=== PATIENT | male | born 1980 | race Caucasian/White ===

== ENCOUNTER 2024-10-04 09:48 | Emergency (ER) | payer OTHER, SELFPAY ==
[2024-10-04] VITALS (14 sets, daily range): BP systolic 97–123; BP diastolic 64–88; PULSE 63–77; RESP 12–116; TEMP 36.4; O2SAT 94–99
--- NOTE | 2024-10-04 10:06 | ECG_ITS ---
Test Date: 2024-10-04 10:13:49 Measurements Intervals [place] Rate: 63 P: 39 ME: 183 QRS: 15 QRSD: 93 T: 48 QT: 410 QTc: 420 Interpretive Statements SINUS RHYTHM BASELINE ARTIFACT- I, II, III NORMAL ECG No previous ECG available for comparison Electronically Signed On 10-04-2024 14:42:07 CDT by Robinson Huitron D.O.
--- NOTE | 2024-10-04 10:16 | ED.GENADULT ---
HPI - General Adult General Chief complaint: Unspecified Stated complaint: OD ON CRACK/FENTANYL Time Seen by Provider: 10/04/24 10:05 History of Present Illness HPI narrative: 43-year-old male with history of polysubstance abuse including fentanyl, cocaine. Patient presents to the emergency department approximately 1 hour after use of both substances. He states he snorted some fentanyl and smoked some crack cocaine. He states he used his normal amount but was from a new supplier and feels like it stronger than his normal supply and he feels very ?off he is describing feelings like his heart is racing and trouble catching his breath in addition to being jittery and shaking his extremities as well as feeling nauseous. He has not had any loss of consciousness or decreased respiratory efforts. Ambulatory here in the emergency department and not any acute physical distress. Answering all my questions appropriately. No trauma. He states he relapsed about 1 month ago after being clean for about 1 year. Denies any pain, chest discomfort, headache, abdominal pain, back pain. No neurological deficits. Related Data Allergies Allergy/AdvReac Type Severity Reaction Status Date / Time quetiapine (From [employer]) AdvReac Unknown Verified 10/04/24 10:16 skin glue Allergy Unknown Uncoded 10/04/24 10:16 Review of Systems Review of Systems: As reviewed above in HPI Exam Narrative: GENERAL: Anxious and jittery but not any acute physical distress. Awake and answering all my questions appropriately HEAD: [Normocephalic, atraumatic.] EYES: [PERRLA and EOMI.] ENT: Nares clear, no rhinorrhea or epistaxis. Mucous membranes moist. NECK: Supple. CHEST: [Clear to auscultation. No respiratory distress.] HEART: [Regular rate and rhythm]. No murmur heard. [Normal peripheral pulses.] ABDOMEN: [Soft, nondistended], [nontender], [No rigidity or guarding] EXTREMITIES: Normal range of motion. [No edema.] SKIN: Warm, dry, no rash. Scattered petechiae in the bilateral lower extremities NEURO: No focal deficits. Alert and oriented x3 PSYCH: Anxious mood, not suicidal or homicidal. Course Vital Signs Vital signs: Vital Signs Temperature 36.4 C L 10/04/24 10:17 Pulse Rate 71 10/04/24 10:17 Respiratory Rate 12 10/04/24 10:17 Blood Pressure 123/88 10/04/24 10:17 Pulse Oximetry 99 10/04/24 10:17 Oxygen Delivery Room Air 10/04/24 10:17 Temperature 36.4 C L 10/04/24 10:17 Pulse Rate 75 10/04/24 12:15 Respiratory Rate 12 10/04/24 12:15 Blood Pressure 101/64 10/04/24 11:33 Pulse Oximetry 98 10/04/24 12:15 Oxygen Delivery Room Air 10/04/24 10:17 Medical Decision Making MDM Narrative Medical decision making narrative: 43-year-old male with history of polysubstance abuse including fentanyl, cocaine. Patient presents to the emergency department approximately 1 hour after use of both substances. He states he snorted some fentanyl and smoked some crack cocaine. He states he used his normal amount but was from a new supplier and feels like it stronger than his normal supply and he feels very ?off he is describing feelings like his heart is racing and trouble catching his breath in addition to being jittery and shaking his extremities as well as feeling nauseous. He has not had any loss of consciousness or decreased respiratory efforts. Ambulatory here in the emergency department and not any acute physical distress. Answering all my questions appropriately. No trauma. He states he relapsed about 1 month ago after being clean for about 1 year. Denies any pain, chest discomfort, headache, abdominal pain, back pain. No neurological deficits. Patient's physical examination shows some jitteriness in the extremities as well as anxious mood and affect. Given his symptomatology sounds like he most likely has more sympathomimetics from the cocaine in affect rather than any depressed affect from the fentanyl as he is awake alert oriented and talking without any difficulty maintaining respirations or consciousness. His vital signs are reassuring without any significant tachycardia blood pressure elevations. He is hydrating well on room air. Patient is requesting medications to help him feel better. At this time will trial a small dose of Ativan for counter acting the cocaine in addition to some Zofran and D5 fluids for hydration and nausea control. Laboratory studies were obtained as well as alcohol level, salicylate level, Tylenol level and UDS. Patient placed on pulse oximetry and load dispatcher local and re-evaluated frequently. Laboratory studies are unremarkable, urine drug screen positive for cocaine, patient remains hemodynamically stable. Patient re-evaluated after interventions and feels significantly better. Patient has metabolized the substances at this point and he is stable for discharge home. Patient offered resources for substance abuse and rehab [facility] will [facility] upon [facility]. Patient comfortable with plan and safe for discharge home at this time. Medical Records Medical records reviewed: Yes I reviewed the external patient's medical records. Vital Signs Vital Signs: Vital Signs Temperature 36.4 C L 10/04/24 10:17 Pulse Rate 71 10/04/24 10:17 Respiratory Rate 12 10/04/24 10:17 Blood Pressure 123/88 10/04/24 10:17 Pulse Oximetry 99 10/04/24 10:17 Oxygen Delivery Room Air 10/04/24 10:17 Temperature 36.4 C L 10/04/24 10:17 Pulse Rate 75 10/04/24 12:15 Respiratory Rate 12 10/04/24 12:15 Blood Pressure 101/64 10/04/24 11:33 Pulse Oximetry 98 10/04/24 12:15 Oxygen Delivery Room Air 10/04/24 10:17 Lab Data Lab results reviewed: Yes I reviewed the patient's lab results. 10/04/24 10:27 10/04/24 10:27 Labs: Lab Results 10/04/24 10/04/24 10/04/24 Range/Units 10:24 10:27 11:11 WBC 12.6 H (4.5-10.0) K/mm3 RBC 4.60 (4.6-6.20) M/mm3 Hgb 14.8 (14.0-18.0) g/dL Hct 44.4 (42.0-52.0) % MCV 96.5 (80-100) fl MCH 32.2 (26-34) pg MCHC 33.3 (32-36) g/dl RDW 13.2 (11.5-14.5) % Plt Count 304 (150-375) k/mm3 MPV 9.9 (7.4-10.4) fl Immature Gran % (Auto) 0.3 (0-0.5) % Neut % (Auto) 75.5 H (45.5-73.1) % Lymph % (Auto) 16.5 L (18.3-44.2) % [place] % (Auto) 6.1 (2.6-8.5) % Eos % (Auto) 1.4 (0-4.4) % Baso % (Auto) 0.2 (0.2-1.2) % Lymph # (Auto) 2.07 (0.9-3.2) K/mm3 [place] # (Auto) 0.8 H (0.1-0.6) K/mm3 Eos # (Auto) 0.2 (0-0.3) K/mm3 Baso # (Auto) 0.0 (0.0-0.1) K/mm3 Abs Immat Gran (auto) 0.04 H (0.00-0.031) K/mm3 Absolute Neuts (auto) 9.5 H (1.3-6.7) K/mm3 Absolute Nucleated RBC 0.000 (0.0-0.012) K/mm3 Nucleated RBC % 0.0 (0.0-0.2) % Sodium 137 (137-145) mmol/L Potassium 3.6 (3.4-5.0) mmol/L Chloride 101 (98-107) mmol/L Carbon Dioxide 22 (22-30) mmol/L Anion Gap 14 H (4-12) mmol/L BUN 17 (9-20) mg/dL Creatinine 0.73 (0.7-1.3) mg/dL Estim Creat Clear Calc 120 ml/min Estimated GFR > 60 (59 - ) Glucose 208 H (65-110) mg/dL POC Capillary Glucose 188 H (65-105) mg/dl Calcium 9.7 (8.4-10.2) mg/dL Total Bilirubin 0.9 (0.2-1.3) mg/dL AST 42 (17-59) U/L ALT 41 (6-50) U/L Alkaline Phosphatase 61 (38-126) U/L Total Protein 7.9 (6.3-8.2) g/dL Albumin 4.7 (3.5-5.1) g/dL TSH 1.760 (0.465-4.680) uIU/mL Urine Color Dark yellow (Yellow) Urine Appearance Cloudy H (Clear) Urine pH 5.0 (5.0-9.0) Ur Specific [place] 1.036 H (1.001-1.035) Urine Protein 1+ H (Negative) mg/dL Urine Glucose (UA) 3+ H (Negative) mg/dL Urine Ketones Negative (Negative) mg/dL Ur Blood (Man) Negative (Negative) Urine Nitrate Negative (Negative) Urine Bilirubin Negative (Negative) Urine Urobilinogen 1.0 (<2.0) mg/dL Leukocyte Esterase Rfl Negative (Negative) MARY/UL Urine RBC 3-5 H (0-2) /hpf Urine WBC 6-10 H (0-3) /hpf Ur Squamous Epith Cells None seen (Few) /hpf Urine Bacteria None seen /hpf Urine Casts 3-5 Salicylates < 1.0 L (2-20) mg/dL Urine Opiates Screen Negative (Negative) Urine Methadone Screen Negative (Negative) Acetaminophen < 10 L (10-30) ug/mL Ur Barbiturates Screen Negative (Negative) Ur Phencyclidine Scrn Negative (Negative) Ur Amphetamine Screen Negative (Negative) U Benzodiazepines Scrn Negative (Negative) Urine Cocaine Screen Positive A (Negative) U Cannabinoids Screen Negative (Negative) Ethyl Alcohol < 10 (<10) mg/dL Discharge Plan Discharge Clinical Impression: Cocaine intoxication, Polysubstance abuse Patient Disposition: Home Condition: Stable Instructions: Antibiotic Form Additional Instructions: Follow[facility]up with [facility]. Return with any emergent concerns. Patient Language: Faroese Follow-up/Referrals: PHYSICIAN,WOOL BROKER [Non-Staff] - Time of Disposition: 12:44
[2024-10-04] MEDS: ONDANSETRON INJ 4 MG/2 ML VIAL IV PUSH (10:24)
[2024-10-04] MEDS: LORazepam INJ (*CRX) 2 MG/ML VIAL 1 MG IV PUSH (10:24)
[2024-10-04] MEDS: DEXTROSE 5%/LACTATED RINGERS 1,000 ML 1000 ML IV CONT (10:25)
[2024-10-04 10:32] LABS: Hematocrit 44.4 % (42.0-52.0); Hemoglobin 14.8 g/dL (14.0-18.0); Immature Granulocyte Percent A 0.3 % (0-0.5); Lymphocytes Absolute Auto 2.07 K/mm3 (0.9-3.2); Mean Corpuscular HGB Conc 33.3 g/dl (32-36); Mean Corpuscular Hemoglobin 32.2 pg (26-34); Mean Corpuscular Volume 96.5 fl (80-100); Nucleated Red Blood Cells Absolute Auto 0.000 K/mm3 (0.0-0.012); Nucleated Red Blood Cells Perc 0.0 % (0.0-0.2); Platelet Count Result 304 k/mm3 (150-375); Red Blood Count 4.60 M/mm3 (4.6-6.20); White Blood Count 12.6 K/mm3 (4.5-10.0)
--- OUTSIDE RECORDS SUMMARY | 2024-10-04 10:42 | XMS_ITS | Encounter Summary ---
Author Organization [facility] Care Team Providers Care Phone Banker Name Role Phone Mo Ford MD Primary Care Provi melisa Unknown, Notinfile Primary Care Provider Unavail able oM Ford MD Primary Care Provi melisa Mo Ford MD Unavailable [phone] Claude Srinivasan DO Unavailable [phone] Satya Pyle DO Unavailable [phone] Dallas GlassW Unavailable [phone] Eugenia Shin LPN Unavailable [phone] Encounter Details Date Type Department Care Team (Latest Contact Info) Description 01/15/2018 Orders Only [facility] Provider, MD Yaya [address] [place] [address] Social History Tobacco Use Types Packs/Day Years Used Date Smoking Tobacco: Never Assessed Sex and Gender Information Value Date Recorded Sex Assigned at Not on file Legal Sex 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 us Historical Provider Final Res ult documented in this encounter Visit Diagnoses Not on filedocumented in this encounter Care Teams Phone Banker Relationship Specialty Start Date End Date Mo Ford MD [address] [facility] [address] [place] [address] PCP - General 04/17/16 04/08/21 Unknown, Notinfile PCP - General 04/09/21 04/11/21 Mo Ford MD [address] [facility] [address] [place] [address] PCP - General Family Medicine 04/12/21 Mo Ford MD [address] [facility] [address] [place] [address] 04/09/21 Claude Srinivasan DO Consulting Physician Urology 01/04/22 Satya Pyle DO [address] [place] [address] Consulting Physician General Surgery 02/12/23 Dallas Glass LCSW [address] [place] [address] [address] [place] [address] Tank Builder Helper 10/01/23 10/31/23 Eugenia Shin LPN [address] [facility] [address] [place] [address] Can Pusher 11/07/23 11/08/23 documented as of this encounter
--- OUTSIDE RECORDS SUMMARY | 2024-10-04 10:42 | XMS_ITS ---
Author Organization [facility] Address [address] [place] [address] Care Team Providers Care Stone Carriage Operator Name Role Phone Jamal Mercado Primary Care Provider Shayla Landis [phone] REASON FOR VISIT PCP Fu Encounters Encounter Location Date Provider Diagnosis [address] [place] [address] 04/24/2024 Shayla Landis Plan Of Treatment No Information Progress Notes * LARRY Francisco Javier JDOB: 1 (43 yo M)Acc No.[id number]:04/24/2024 UNLOCKED PROGRESS NOTE Progress Notes Patient: Francisco Javier [place] Provider: Marcell Landis APRN :1980 A ge:43 Y S ex:Male Date:04/24/2024 Address:[address] [place] [address] [facility] Pcp:Jamal Mercado Subjective: * Chief Complaints: * 1 . PCP Fu. * Medical History: Objective: * Vitals: Assessment: Plan: * Treatment: * * Electronic signature of Miriam Landis , [id number] on 10/04/2024 at 10:42 AM CDT Sign off status: Pending * Provider: Marcell Landis APRN Date: 04/24/2024 Generated for Printi ng/Faxing/eTransmitting on: 0 10/04/2024 10:42 AM CDT
--- OUTSIDE RECORDS SUMMARY | 2024-10-04 10:42 | XMS_ITS | Encounter Summary ---
Author Organization [facility] Care Team Providers Care Musical Instrument Mechanic Name Role Phone Mo Ford MD Primary Care Provi melisa Unknown, Notinfile Primary Care Provider Unavail able Mo Ford MD Primary Care Provi melisa Mo Ford MD Unavailable + [phone] Claude Srinivasan DO Unavailable [phone] Satya Pyle DO Unavailable [phone] Dallas GlassW Unavailable [phone] Eugenia Shin LPN Unavailable [phone] Encounter Details Date Type Department Care Team (Latest Contact Info) Description 10/11/2016 Orders Only [facility] Provider, MD Yaya [address] [place] [id number] Social History Tobacco Use Types Packs/Day Years Used Date Smoking Tobacco: Never Assessed Sex and Gender Information Value Date Recorded Sex Assigned at Not on file 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 us Historical Provider [facility] Final Result documented in this encounter Visit Diagnoses Not on filedocumented in this encounter Care Teams Musical Instrument Mechanic Relationship Specialty Start Date End Date Mo Ford MD [address] [address] PCP - General 04/17/16 04/08/21 Unknown, Notinfile PCP - General 04/09/21 04/11/21 Mo Ford MD [address] [address] PCP - General Family Medicine 04/12/21 Mo Ford MD [address] [address] 04/09/21 Claude Srinivasan DO Consulting Physician Urology 01/04/22 Satya Pyle DO [address] [place] [id number] Consulting Physician General Surgery 02/12/23 Dallas Glass LCSW [address] [place] [address] [address] [place] [address] Heat Set Operator 10/01/23 10/31/23 Eugenia Shin LPN [address] [facility] [address] [place] [address] Ceramics Technician 11/07/23 11/08/23 documented as of this encounter
--- OUTSIDE RECORDS SUMMARY | 2024-10-04 10:42 | XMS_ITS | Encounter Summary ---
Author Organization [facility] Care Team Providers Care Toolman Name Role Phone Mo Ford MD Primary Care Provi melisa Unknown, Notinfile Primary Care Provider Unavail able Mo Ford MD Primary Care Provi melisa Mo Ford MD Unavailable + [phone] Claude Srinivasan DO Unavailable [phone] Satya Pyle DO Unavailable [phone] Dallas GlassW Unavailable [phone] Eugenia Shin LPN Unavailable [phone] Encounter Details Date Type Department Care Team (Latest Contact Info) Description 10/12/2016 Orders Only [facility] CLINCONV Provider, MD Yaya [address] [place] [address] Social History Tobacco Use Types Packs/Day Years Used Date Smoking Tobacco: Never Assessed Sex and Gender Information Value Date Recorded Sex Assigned at Not on file Legal Sex Male 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 us Historical Provider [facility] Final Result documented in this encounter Visit Diagnoses Not on filedocumented in this encounter Care Teams Toolman Relationship Specialty Start Date End Date Mo Ford MD [address] [address] PCP - General 04/17/16 04/08/21 Unknown, Notinfile PCP - General 04/09/21 04/11/21 Mo Ford MD [address] [address] PCP - General Family Medicine 04/12/21 Mo Ford MD [address] [address] 04/09/21 Claude Srinivasan DO Consulting Physician Urology 01/04/22 Satya Pyle DO [address] [place] [phone] Consulting Physician General Surgery 02/12/23 Dallas Glass LCSW [address] [place] [address] [address] [place] [address] Automotive Porter 10/01/23 10/31/23 Eugenia Shin LPN [address] [facility] [address] [place] [address] Workgroup Leader 11/07/23 11/08/23 documented as of this encounter
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
--- OUTSIDE RECORDS SUMMARY | 2024-10-04 10:42 | XMS_ITS | Encounter Summary ---
Author Organization [facility] Facility Care Team Providers Care Hvac Instructor Name Role Phone Mo Ford MD Primary Care Provi melisa Unknown, Notinfile Primary Care Provider Unavail able Mo Ford MD Primary Care Provi melisa Mo Ford MD Unavailable + [phone] Claude Srinivasan DO Unavailable +[phone] Satya Pyle DO Unavailable [phone] Dallas GlassW Unavailable [phone] Eugenia Shin LPN Unavailable [phone] Encounter Details Date Type Department Care Team (Latest Contact Info) Description 03/01/2016 Orders Only [facility]INCONV Provider, MD Yaya [address] [place] [id number] Social History Tobacco Use Types Packs/Day Years Used Date Smoking Tobacco: Never Assessed Sex and Gender Information Value Date Recorded Sex Assigned at Not on file 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 Historical Provider MD Final Res ult * SCAN - LABS (03/09/2016 12:00 AM RETAIL ANALYTICS MANAGER) Narrative 03/09/2016 12:00 AM RETAIL ANALYTICS MANAGER Ordered by an unspecified provider. Historical Provider MD Final Res ult * SCAN - LABS (03/07/2016 12:00 AM RETAIL ANALYTICS MANAGER) Narrative 03/07/2016 12:00 AM RETAIL ANALYTICS MANAGER Ordered by an unspecified provider. Historical Provider Final Res ult documented in this encounter Visit Diagnoses Not on filedocumented in this encounter Care Teams Hvac Instructor Relationship Specialty Start Date End Date Mo Ford MD [address] [address] PCP - General 04/17/16 04/08/21 Unknown, Notinfile PCP - General 04/09/21 04/11/21 Mo Ford MD [address] [address] PCP - General Family Medicine 04/12/21 Mo Ford MD [address] [facility] [address] [place] [address] 04/09/21 Claude Srinivasan DO Consulting Physician Urology 01/04/22 [place] [address] [place] [id number] Consulting Physician General Surgery 02/12/23 Dallas Glass LCSW [address] [place] [address] [address] [place] [address] Media Operator 10/01/23 10/31/23 Eugenia Shin LPN [address] [facility] [address] [place] [address] Payroll Administrative Assistant 11/07/23 11/08/23 documented as of this encounter
--- OUTSIDE RECORDS SUMMARY | 2024-10-04 10:42 | XMS_ITS | Encounter Summary ---
Author Organization [facility] Facility Care Team Providers Care Field Artillery Targeting Technician Name Role Phone Mo Ford MD Primary Care Provi melisa Unknown, Notinfile Primary Care Provider Unavail able Mo Ford MD Primary Care Provi melisa Mo Ford MD Unavailable + [phone] Claude Srinivasan DO Unavailable [phone] Satya Pyle DO Unavailable [phone] Dallas GlassW Unavailable [phone] Eugenia Shin LPN Unavailable [phone] Encounter Details Date Type Department Care Team (Latest Contact Info) Description 04/19/2016 Orders Only [facility] CLINCONV Provider, MD Yaya [address] [place] [address] Social History Tobacco Use Types Packs/Day Years Used Date Smoking Tobacco: Never Assessed Sex and Gender Information Value Date Recorded Sex Assigned at Not on file 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 us Historical Provider Final Res ult documented in this encounter Visit Diagnoses Not on filedocumented in this encounter Care Teams Field Artillery Targeting Technician Relationship Specialty Start Date End Date Mo Ford MD [address] [facility] [address] [place] [address] PCP - General 04/17/16 04/08/21 Unknown, Notinfile PCP - General 04/09/21 04/11/21 Mo Ford MD [address] [facility] [address] [place] [address] PCP - General Family Medicine 04/12/21 Mo Ford MD [address] [facility] [address] [place] [address] 04/09/21 Claude Srinivasan DO Consulting Physician Urology 01/04/22 Satya Pyle DO [address] [place] [address] Consulting Physician General Surgery 02/12/23 Dallas Glass LCSW [address] [place] [address] [address] [place] [address] Isobutylene Operator Chief 10/01/23 10/31/23 Eugenia Shin LPN [address] [facility] [address] [place] [address] Cutter Hot Knife 11/07/23 11/08/23 documented as of this encounter
--- OUTSIDE RECORDS SUMMARY | 2024-10-04 10:42 | XMS_ITS | Clinical Summary ---
Author Organization [facility] Address [address] [place] [address] Care Team Providers Care Telecommunications Clerk Name Role Phone Mo Ford MD Primary Care Provi melisa Mo Ford MD Unavailable [phone] Claude Srinivasan DO Unavailable [phone] Satya Pyle DO Unavailable [phone] Allergies Active Allergy Reactions Criticality Noted Date Comments Adhesive Rash Medium 10/16/2022 SURGICAL GLUE Latex Rash,Redness Medium 11/04/2023 Quetiapine Hallucinations Medium 06/13/2018 nightmares Zolpidem Hallucinations Medium 06/13/2018 nightmares Medications ARIPiprazole (ABILIFY) 5 mg tabletIndicatio ns:Depression Treatment Adjunct Take 1 tablet (5 mg total) by mouth daily 30 tablet 11/05/2023 Active prazosin (MINIPRESS) 2 mg capsuleIndicati ons:Bipolar 1 disorder (HCC) Take 1 capsule (2 mg total) by mouth nightly 30 capsule 11/05/2023 Active sertraline (ZOLOFT) 50 mg tabletIndicatio ns:Anxiety with Depression Take 1 tablet (50 mg total) by mouth daily 30 tablet 11/05/2023 Active Active Problems Patient Care Coordination No te Formatting of this note migh t be different from the original. This is a 42-year-old male presenting to us at the request of Dr. Mo Ford for an evaluation of sternal pain. He has a medical history significant for ADD, bipolar affective disorder, hyperlipidemia, kidney stones and polysubstance abuse. He is a former smoker who quit in 2013. He has a history of GERD, gastroparesis and dysphagia. He is had a hiatal hernia repair in the past. He is had multiple dilations. He had to have a LINX implant. He is had an endoscopic pyloromyotomy as well as multiple esophageal dilations. The patient complains of severe tenderness over his xiphoid process. The patient underwent an ultrasound of the chest on 11/15/2022 to further evaluate a chest wall mass. In the area of interest in the deep cutaneous layer at the margin with the subcutaneous tissues there is a hypoechoic lesion 0.3 x 0.2 x 0.3 cm. This does not show vascular flow. This may have slight increased through transmission but not definitive, this is incompletely characterized. He underwent a chest CT on 01/09/2023. The lungs are well expanded. Minimal scarring in the inferior lingular segment. There is no focal consolidation. There are no suspicious lung nodules. The airways are patent and normal in caliber. No bronchial wall thickening. No pleural effusion or pneumothorax. No suspicious lymphadenopathy or masses. No chest wall masses or subcutaneous air. LINX device in adequate position. The liver is mildly steatotic. The gallbladder and spleen are normal. Right kidney normal. Tiny left renal cysts. Examination of bone windows demonstrates no suspicious lytic or blastic lesions. The sternum is intact. The xiphoid process is oriented anteriorly. This is an unchanged chronic finding, and no new acute findings are identified at this level. He is here for further surgical evaluation. Problem Noted Date Diagnosed Date History of sensory changes 11/06/2023 REM sleep behavior disorder 10/24/2023 Memory loss 10/24/2023 Irritable bowel syndrome wit h both constipation and diarrhea 02/23/2023 Assessment & Plan (02/23/2023 10:23 PM AVIONICS MANAGER): Images from the original note were not included. Intermittent diarrhea for the past 6 months associated with fecal urgency Stool studies on 09/08/22 were negative. Colonoscopy September 2022 with poor prep, biopsies negative for microscopic colitis. Dr Burris ordered repeat colonoscopy with 2 day prep in January of 2023. Prep was fair despite the 2 day prep. Recommended treating constipation aggressively He is most likely having overflow diarrhea. Will treat constipation with Linzess January 2023 report attached below repeat CSC in 3 years January 2026 Chest wall pain 02/12/2023 History of colon polyps 05/18/2022 Assessment & Plan (02/23/2023 10:19 PM AVIONICS MANAGER): colonoscopy by Dr. Goodwin June 2021 with tubular adenoma in the ascending colon. Assessment & Plan (10/05/2022 9:46 AM CDT): Last colonoscopy by Dr. Goodwin June 2021 with tubular adenoma in the ascending colon. Assessment & Plan (05/18/2022 11:20 AM CDT): Last colonoscopy by Dr. Goodwin June 2021 with tubular adenoma in the ascending colon. Diarrhea 05/18/2022 Assessment & Plan (10/05/2022 9:57 AM CDT): Chronic diarrhea for the past 6 months associated with fecal urgency. Stool studies negative. Colonoscopy September 2022 with poor prep, biopsies negative for microscopic colitis. -repeat colonoscopy with 2 day prep -The risks (risks of bleeding, infection, perforation requiring surgery, missed polyps/cancer, dental injury, aspiration pneumonia, anesthesia complications such as drug reaction and cardiopulmonary complications including rare chance of ), benefits, and alternatives of the planned procedure were explained to the patient who understands and consents to having procedure done. Assessment & Plan (05/18/2022 11:30 AM CDT): Chronic diarrhea for the past 6 months associated with fecal urgency. -we will order labs and stool studies for further evaluation -schedule colonoscopy -The risks (risks of bleeding, infection, perforation requiring surgery, missed polyps/cancer, dental injury, aspiration pneumonia, anesthesia complications such as drug reaction and cardiopulmonary complications including rare chance of ), benefits, and alternatives of the planned procedure were explained to the patient who understands and consents to having procedure done. Fecal urgency 05/18/2022 Assessment & Plan (10/05/2022 9:46 AM CDT): Fecal urgency and chronic diarrhea for 6 months. -recommend metamucil bid Assessment & Plan (05/18/2022 11:26 AM CDT): Fecal urgency and chronic diarrhea for 6 months. -recommend metamucil bid Rectal bleeding 05/18/2022 Assessment & Plan (10/05/2022 9:45 AM CDT): Intermittent rectal bleeding for the past year. -colonoscopy as above Assessment & Plan (05/18/2022 11:31 AM CDT): Intermittent rectal bleeding for the past year. -colonoscopy as above Gastroparesis 05/05/2022 Assessment & Plan (02/23/2023 10:34 PM AVIONICS MANAGER): History of gastroparesis and follows with Dr. Pyle, recently had endoscopic pyloromyotomy. Recently had EGD a with dilation -continue follow up with Dr. Pyle Assessment & Plan (10/05/2022 9:45 AM CDT): History of gastroparesis and follows with Dr. Pyle, recently had endoscopic pyloromyotomy. -continue follow up with Dr. Pyle Assessment & Plan (05/18/2022 11:31 AM CDT): History of gastroparesis and follows with Dr. Pyle, recently had endoscopic pyloromyotomy. -continue follow up with Dr. Pyle Calculus of kidney 01/03/2022 Left renal stone 11/17/2021 Overview (11/17/2021): Added automatically from request for surgery [id number] Chronic right shoulder pain 05/06/2020 Assessment & Plan (06/14/2020 10:20 AM CDT): Patient has ongoing right shoulder and proximal right arm pain with diffuse right arm swelling suspect for complex regional pain syndrome. MRI of the brachial plexus as well as EMG/NCS of the right upper extremity is normal. He has no neck pain or suggestion of radiculopathy. I will refer him for pain management to see about potential treatment options. Observation for the neurological standpoint would be appropriate at this time. I will see him back from the medical neurological standpoint on an as-needed basis. Assessment & Plan (05/06/2020 3:35 PM AVIONICS MANAGER): Patient has chronic right shoulder pain with diffuse right arm weakness, and intermittent swelling with physical examination suggestion of possible brachial plexopathy given the diffuse nature of the muscular weakness. He may also have a component of complex regional pain syndrome type 1 given his history of trauma and swelling. I will obtain an MRI of his right brachial plexus and EMG/NCS evaluation at [facility] for better characterization and see him back thereafter. He may ultimately need a pain management referral as well for evaluation and potential complex regional pain syndrome type 1. I will see him back upon completion of his MRI and EMG/NCS. Attention deficit disorder (ADD) without hyperac tivity 03/10/2019 Hyperlipidemia 02/07/2017 Bipolar affective disorder, current episode hypo manic 10/12/2016 Heroin addiction 10/12/2016 Primary insomnia 10/12/2016 Resolved Problems Problem Noted Date Diagnosed Date Resolved Date Cerebrovascular accident (CV A), unspecified mechanism 10/31/2023 11/06/2023 Overweight 03/08/2020 03/16/2022 Overview (03/08/2020): BMI Follow-up includes: education provided. Encounters Date Type Department Care Team Description 10/02/2024 Telephone [facility] Family Medicine [address] [address] Mo Ford MD YU Questions 07/08/2024 8:07 PM CDT - 07/08/2024 10:49 PM CDT Emergency [facility] Emergency Department [address] [place] [address] Discharge Disposition: Left without being seen from Last 3 Months Immunizations Immunization Administration Dates Next Due Hep A, 3 Dose 03/23/1999 Influenza, Quadrivalent, Spl it, Preservative Free, Intramuscular 01/16/2023,01/04/2022 Influenza, Unspecified 10/01/2023(Deferr ed: Patient Refused),04/26/2022(Deferred: Patient Refused),12/03/2020(Deferred: Patient Refused),12/17/2018(Deferred: Patient Refused) Surgical History Surgery Date Site/Laterality Comments KNEE SURGERY 04/05/2017 - 05/02/2017 Right HTO, break and realligned tibie, problems with screws breaking off, several surgeries REPLACEMENT TOTAL KNEE Right 2020 KNEE ARTHROSCOPY Right KNEE DISLOCATION SURGERY Right screws, plate implanted WISDOM TOOTH EXTRACTION CYSTOSCOPY W/ STONE MANIPULATION 12/03/2020 - 01/02/2021 Right LITHOTRIPSY 03/05/2006 - 03/04/2007 N/A HERNIA REPAIR 04/12/2021 hiatal hernia with LINX procedure ESOPHAGUS SURGERY LINX procedure- 04/12/21 UPPER GASTROINTESTINAL ENDOSCOPY x about 12 times / with dilations, about every 6-8 weeks SMALL INTESTINE SURGERY COLONOSCOPY x3 Medical History Medical History Date Comments Anxiety Depression Insomnia History of heroin abuse (HCC) cl wilfrid 9 years since 2013 Bipolar affective disorder (HCC) Hyperlipidemia Adhd Dysphagia Chronic diarrhea GERD (gastroesophageal reflux disease) Kidney stone 14mm stone remov ed JAN 2022, 9 mm year before- 2020, currently haave a 3rd in lining of kidney, not causing problems at this time ADHD (attention deficit hype ractivity disorder) Hiatal hernia Difficulty swallowing Dumping syndrome Camilo's esophagus Family History Medical History Relation Name Comments No Known Problems Brother 1 No Known Problems Brother 2 No Known Problems Father Colon cancer Maternal Grandmother No Known Problems Mother No Known Problems Sister Relation Name Status Comments Brother 1 Alive Brother 2 Alive Father Alive Maternal Grandmother Mother Alive Sister Alive Social History Tobacco Use Types Packs/Day Years Used Date Smoking Tobacco: Former Cigarettes 0.5 10 0 03/05/2003 - 03/05/2013 Smokeless Tobacco: Never Alcohol Use Standard Drinks/Week Comments Yes 0 (1 standard drink = 0.6 oz pur e alcohol) AUDIT-C Answer Date Recorded Q1: How often do you have a drink containing alc ohol? Monthly or less 09/13/2023 Q2: How many drinks containi ng alcohol do you have on a typical day when you are drinking? 1 or 2 09/13/2023 Q3: How often do you have si x or more drinks on one occasion? Never 09/13/2023 PHQ-2 Answer Date Recorded PHQ-2 Total Score 5 04/20/2023 Personal Safety Answer Date Recorded Have you ever been in or are you currently in a harmful physical or emotional relationship or is someone making you feel afraid or unsafe? Denies 07/08/2024 Sex and Gender Information Value Date Recorded Sex Assigned at Not on file Legal Sex Male 6:02 PM AVIONICS MANAGER Gender Identity Not on file Sexual Orientation Not on file Obstetrics History Last Filed Vital Signs Vital Sign Reading Time Taken Comments Blood Pressure 121/91 07/08/2024 8:14 PM CDT Pulse 105 07/08/2024 8:14 PM CDT Temperature 36.4 C (97.6 F) 07/08/2024 8:14 PM CDT Respiratory Rate 16 07/08/2024 8:14 PM CDT Oxygen Saturation 97% 07/08/2024 8:14 PM CDT Inhaled Oxygen Concentration - - Weight 83.5 kg (184 lb 1.4 oz) 07/08/2024 8:14 P M CDT Height 177.8 cm (5' 10) 10/31/2023 11:20 PM CDT Body Mass Index 26.41 10/31/2023 11:20 PM CDT Plan of Treatment Health Maintenance Due Date Last Done Comments DTaP/Tdap/Td Vaccine (1 - Tdap) 12/14/1991 Varicella Vaccines (1 of 2 - 13+ 2-dose series) 1993 Hepatitis B Screening 1998 HPV Vaccines (1 - 3-dose SCDM series) 12/14/2007 Regular Well Visit/Exam 18-64 04/26/2023 04/26/2022, 09/20/2021, 03/08/2020 Covid-19 Vaccine (2023- season) 2023 08/09/2020, 07/19/2020 Depression Screening 04/20/2024 04/20/2023, 04/20/2023, 04/26/2022, Additional history exists Influenza Vaccine (#1) 2024 01/16/2023, 2021 Colon Cancer Screening-Colonoscopy 01/19/2026 01/19/2023, 09/20/2022 Hepatitis C Screening Completed 11/01/2023 Pneumococcal vaccine <65 Aged Out No longer eligible based on patient's age to complete this topic Goals Goal Patient Goal Type Associated Problems Recent Progress Patient-Stated? Author CCM Chronic Pain Care Plan Chronic Care Management No Maicol Pal, RN Note: Problem: Chronic Pain Goals: 1. Minimize further functional decline 2. Maximize quality of life 3. Control pain Strategies: - Activity/exercise program recommendation - Conservative stepwise pain medicine strategy with multi-disciplinary approach - Recommend healthy lifestyle strategies and compensatory methods as needed Reduce the likelihood of falling Lifestyle No Maicol Pal, RN Note: Below are four things you can do to prevent falls: Begin an exercise program to improve your leg strength & balance Ask your doctor or pharmacist to review your medicines Get annual eye check-ups & update your eyeglasses Make your home safer by: Removing clutter & tripping hazards Putting railings on all stairs & adding grab bars in the bathroom Having good lighting, especially on stairs Contact your local community or [facility] for information on exercise, fall prevention programs, or options for improving home safety. Medical Devices Implanted Type Area Power Screwdriver Operator Device Identifier Shelf Expiration Date Model / Serial / Lot Other - See Comments Other - see comments N/A: Knee Hardware Right: Knee Description:RIGHT KNEE Screw Right: Knee Joint Right: Knee Lynx N/A: Stomach [employer] [id number] Linx Gastrointestinal 15 Bead 1.5 Adriana System Implant Gerd - [id number] Implanted:Qty: 1 on 04/12/2021 by Satya Pyle, DO at [facility] [employer] [id number] 06/11/2024 [id number] / / [id number] [employer]/C R Bard Mesh Surg 3dmax [id number] Left Mid Large Inguinal Hernia [id number] - [id number] Implanted:Qty: 1 on 06/07/2022 by Satya Pyle DO at [facility] Left: Inguinal [employer]/C R Bard [id number] 09/29/2026 [id number] / / [id number] [employer]/C R Bard Mesh Surg 3dmax Right Mid Large Inguinal Hernia [id number] - [id number] Implanted:Qty: 1 on 06/07/2022 by Satya Pyle DO at [facility] Left: Inguinal [employer]/C R Bard [id number] 11/30/2026 [id number] / / [id number] Procedures Procedure Name Priority Date/Time Associated Diagnosis Comments HEPATITIS C ANTIBODY Routine 11/01/2023 8:17 PM CDT COLONOSCOPY 01/19/2023 7:03 AM AVIONICS MANAGER from Last 3 Months or Most Recently Relevant to Health Maintenance Results * Hepatitis C antibody Blood (11/01/2023 8:17 PM CDT) Hep C Ab Nonreactive Nonreactive Comment:Antibodies to HCV no t detected. Does NOT exclude the possibility of recent exposure to HCV. Current interpretive data was last revised on 21 Blood 11/01/2023 8:17 PM CDT 11/01/2023 8:44 PM CDT us Tra Galicia MD LAB MICROBIOLOGY - GENERAL ORDERABLES Final Result [facility] Department [place] [address] * COLONOSCOPY (01/19/2023 7:03 AM AVIONICS MANAGER) Anatomical Region Laterality Modality Other Narrative Procedure Note Marty Burris MD - 01/19/2023 7:03 AM CST [facility] GI ENDOSCOPY Patient Name: Francisco Javier Bernardo Procedure Date: 01/19/2023 7:03 AM Date of : 1980 Admit Type: Outpatient Age: 42 Gender: Male Attending MD: Marty Burris M.D. Room: [facility] ENDOSCOPY ROOM 06 Note Status: Finalized Procedure: Colonoscopy Indications: Chronic diarrhea, Rectal bleeding, History of colon polyps Referring MD: Providers: Marty Burris M.D. Medicines: Monitored Anesthesia Care Complications: No immediate complications. Estimated Blood Loss: Estimated blood loss: none. Procedure: Pre-Anesthesia Assessment: - Prior to the procedure, a History and Physicalwas performed, and patient medications and allergieswere reviewed. The risks and benefits of the procedureand the sedation options and risks were discussed withthe patient. All questions were answered and informed consent was obtained. Patient identification and proposed procedure were verified. After reviewingthe risks and benefits, the patient was deemed in satisfactory condition to undergo the procedure.The anesthesia plan was to use monitored anesthesiacare (MAC). Immediately prior to administration of medications, the patient was re-assessed foradequacy to receive sedatives. The heart rate, respiratory rate, oxygen saturations, blood pressure, adequacyof pulmonary ventilation, and response to care were monitored throughout the procedure. The physical status of the patient was re-assessed after the procedure. The benefits, risks and alternatives of theprocedure and sedation were discussed and informed consentwas obtained. All questions were answered. Please referto the signed informed consent document in the medical record. The scope was passed under direct vision.The [id number] colonoscope was introduced through theanus and advanced to the terminal ileum. The colonoscopy was performed without difficulty. The patient tolerated the procedure well. The quality of thebowel preparation was fair. Scope withdrawal time was 14 minutes. Prep was administered in a split dose. Findings: The perianal and digital rectal examinations were normal. The terminal ileum appeared normal. A few small-mouthed diverticula were found in the sigmoid colon. Non-bleeding internal hemorrhoids were found during retroflexion. The hemorrhoids were small. Impression: - Preparation of the colon was fair. - The examined portion of the ileum was normal. - Diverticulosis in the sigmoid colon. - Non-bleeding internal hemorrhoids. - No specimens collected. Recommendation: - Patient has a contact number available for emergencies. The signs and symptoms of potential delayed complications were discussed with thepatient. Return to normal activities tomorrow. Written discharge instructions were provided to thepatient. - High fiber diet. - Continue present medications. - Repeat colonoscopy in 3 years for surveillancedue to fair prep. - Return to GI clinic as previously scheduled, recommend aggressive treatment of constipation. Marty Burris M.D. Marty Burris M.D. 01/19/2023 8:18:27 AM . Number of Addenda: 0 Note Initiated On: 01/19/2023 7:03 AM Recognized by the [employer] [employer] for promoting quality in endoscopy Marty Burris MD ENDOSCOPY PROCEDURES Final Resul t from Last 3 Months or Most Recently Relevant to Health Maintenance Insurance [facility] [place] [address] [address] [place] [address] Advance Directives For more information, please contact: [phone] * Full Code (Latest Code Status on File) Date Activated Date Inactivated Comments 10/31/2023 11:23 PM 11/06/2023 1:27 PM * Full Code Date Activated Date Inactivated Comments 05/05/2022 1:19 PM 05/06/2022 5:15 PM * Full Code Date Activated Date Inactivated Comments 01/03/2022 3:55 PM 01/04/2022 7:23 PM Care Teams Telecommunications Clerk Relationship Specialty Start Date End Date Mo Ford MD [address] [address] PCP - General Family Medicine 04/12/21 Mo Ford MD [address] [address] 04/09/21 Claude Srinivasan DO [address] [address] Consulting Physician Urology 01/04/22 Satya Pyle DO [address] [place] [id number] Consulting Physician General Surgery 02/12/23
--- OUTSIDE RECORDS SUMMARY | 2024-10-04 10:42 | XMS_ITS | Continuity of Care Document ---
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 [address], [id number], [place]. tel:[phone] [facility], [address], [id number], [place] tel:[phone] [facility] No Information 2 Karla Hassan . [address] [address], [place], [place], [id number], [place]. tel:[phone] Referring Provider: Mo Ford, [address], [address]. tel:[phone] [facility], [address], [id number], [place] tel:[phone] [facility] No Information 2 Karla Hassan . [address] [facility], [address], [id number], [place]. tel:[phone] Referring Provider: Mo Ford, [address] [facility] [address], [address]. tel:[phone] [facility], [address] [address], [place], [place], [id number], [place] tel:[phone] [facility] No Information 2 Administrat princess Provider. [address] [facility], [address] [address], [place], [place], [id number], [place]. tel:[phone] Referring Provider: Mo Ford, [address] [facility] [address], [place], [address]. tel:[phone] Office/outpa tient visit,est, mod [facility], [address] [address], [place], [place], [id number], [place] tel:[phone] [facility] right knee (chief complaint) Pain in right knee 1 Karla Hassan . [address] [address], [place], [place], [id number], [place]. tel:[phone] Referring Provider: Mo Ford, [address] [facility] [address], [place], [address]. tel:[phone] [facility], [address], [id number], [place] tel:[phone] [facility] Unilateral primary osteoarthrit is, right knee 1 Karla Hassan . [address] [facility], [address] [address], [place], [place], [id number], [place]. tel:[phone] [facility], [address] [place] [address], [id number], [place] tel:[phone] [facility] right knee (chief complaint) Unilateral primary osteoarthrit is, right knee 1 Karla Hassan . [address] [facility], [address] [address], [place], [place], [id number], [place]. tel:[phone] [facility], [address] [place] [address], [id number], [place] tel:[phone] [facility] right knee (chief complaint) Unilateral primary osteoarthrit is, right knee 1 Karla Hassan . [address] [facility] [address], [place], [place], [id number], [place]. tel:[phone] Referring Provider: Mo Ford, [address] [facility] [address], [place], [address]. tel:[phone] [facility], [address] [address], [place], [place], [id number], [place] tel:[phone] [facility] right knee (chief complaint) Unilateral primary osteoarthrit is, right knee 1 Karla Hassan . [address] [facility], [facility] [address], [place], [place], [id number], [place]. tel:[phone] [facility], [address], [id number], [place] tel:[phone] [facility] Unilateral primary osteoarthrit is, right knee 1 Karla Hassan . [address] [facility], [address] [address], [place], [place], [id number], [place]. tel:[phone] [facility], [address], [id number], [place] tel:[phone] [facility] No Information 1 Karla Hassan . [address] [facility], [facility] 100, [place], [place], [id number], [place]. tel:[phone] [facility], [address], [id number], [place] tel:[phone] [facility] [place] No Information 1 Karla Hassan . [address] [facility], [facility] 100, [place], [place], [id number], [place]. tel:[phone] [facility], [address], [id number], [place] tel:[phone] [facility] No Information 1 Marcello Helton. [address] [address], [place], [place], [id number], [place]. tel:[phone] [facility], [address] [address], [place], [place], [id number], [place] tel:[phone] [facility] Unilateral primary osteoarthrit is, right knee 1 Karla Hassan . [address] [address], [place], [place], [id number], [place]. tel:[phone] Office/outpa tient visit,est, [facility], [address] [address], [place], [place], [id number], [place] tel:[phone] [facility] right knee (chief complaint) Unilateral primary osteoarthrit is, right knee 1 Karla Hassan . [address] [address], [place], [place], [id number], [place]. tel:[phone] [facility], [address], [id number], [place] tel:[phone] [facility] right knee (chief complaint) Pain in right knee 1 Karla Hassan . [address] [address], [place], [place], [id number], [place]. tel:[phone] [facility], [address], [id number], [place] tel:[phone] [facility] No Information 1 Karla Hassan . [address], [id number], [place]. tel:[phone] Family History Family Member Type Diagnosis Age At Onset Mother Problem (finding) Cancer, unknown Payers Payer name Insurance type Covered green party ID Authoriza tion(s) [employer] [facility] [id number] Social History Type Description Quantity Date Captured [...]
--- OUTSIDE RECORDS SUMMARY | 2024-10-04 10:42 | XMS_ITS | Encounter Summary ---
Author Organization [facility] Care Team Providers Care Drafting Teacher Name Role Phone Mo Ford MD Primary Care Provi melisa Unknown, Notinfile Primary Care Provider Unavail able Mo Ford MD Primary Care Provi melisa Mo Ford MD Unavailable [phone] Claude Srinivasan DO Unavailable [phone] Satya Pyle DO Unavailable [phone] Dallas GlassW Unavailable [phone] Eugenia Shin LPN Unavailable [phone] Encounter Details Date Type Department Care Team (Latest Contact Info) Description 04/27/2015 Orders Only [facility] Provider, MD Yaya [address] [place] [address] Social History Tobacco Use Types Packs/Day Years Used Date Smoking Tobacco: Never Assessed Sex and Gender Information Value Date Recorded Sex Assigned at Not on file 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 us Historical Provider Final Res ult documented in this encounter Visit Diagnoses Not on filedocumented in this encounter Care Teams Drafting Teacher Relationship Specialty Start Date End Date Mo Ford MD [address] [facility] [address] [place] [address] PCP - General 04/17/16 04/08/21 Unknown, Notinfile PCP - General 04/09/21 04/11/21 Mo Ford MD [address] [facility] [address] [place] [address] PCP - General Family Medicine 04/12/21 Mo Ford MD [address] [facility] [address] [place] [address] 04/09/21 Claude Srinivasan DO Consulting Physician Urology 01/04/22 Satya Pyle DO [address] [place] [address] Consulting Physician General Surgery 02/12/23 Dallas Glass LCSW [address] [place] [address] [address] [place] [address] Waste 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
--- OUTSIDE RECORDS SUMMARY | 2024-10-04 10:42 | XMS_ITS | Continuity of Care Document ---
Author Organization [facility] Address [address] [place] [address] [address] [place] [address] Phone Care Team Providers Care Furnace Feeder Name Role Phone Wurm PT, DPT, Nish Unavailable Unavailable Procedures Procedure Date Therapeutic Exercise Biodex Testing Therapeutic Exercise Biodex Testing Neuromuscular Re-Ed Therapeutic Activities Progress Note Therapeutic Exercise Therapeutic Activities Neuromuscular Re-Ed Therapeutic Exercise Therapeutic Activities Neuromuscular Re-Ed Therapeutic Exercise Therapeutic Activities Neuromuscular Re-Ed Therapeutic Exercise Therapeutic Activities Therapeutic Exercise Neuromuscular Re-Ed Therapeutic Exercise Therapeutic Activities Neuromuscular Re-Ed Therapeutic Activities Neuromuscular Re-Ed Therapeutic Exercise Therapeutic Activities Therapeutic Exercise Neuromuscular Re-Ed Progress Note Therapeutic Activities Neuromuscular Re-Ed Therapeutic Exercise Therapeutic Exercise Neuromuscular Re-Ed Therapeutic Activities Neuromuscular Re-Ed Therapeutic Activities Therapeutic Exercise Therapeutic Activities Therapeutic Exercise Neuromuscular Re-Ed Neuromuscular Re-Ed Therapeutic Exercise Therapeutic Activities Neuromuscular Re-Ed Therapeutic Activities Therapeutic Exercise Therapeutic Activities Neuromuscular Re-Ed Therapeutic Exercise Neuromuscular Re-Ed Therapeutic Activities Therapeutic Exercise Therapeutic Activities Neuromuscular Re-Ed Therapeutic Exercise Therapeutic Activities Neuromuscular Re-Ed Therapeutic Exercise Manual Therapy Therapeutic Activities Neuromuscular Re-Ed Therapeutic Exercise Manual Therapy Therapeutic Activities Neuromuscular Re-Ed Therapeutic Exercise Manual Therapy Therapeutic Activities Therapeutic Exercise Therapeutic Activities Therapeutic Exercise Therapeutic Activities Neuromuscular Re-Ed Therapeutic Exercise PT Evaluation Moderate Complexity Therapeutic Activities Neuromuscular Re-Ed Therapeutic Exercise Therapeutic Exercise Biodex Testing 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 2 hrs 020 Work Conditioning Initial 2 hrs 020 Work Conditioning add 1 hr Work Conditioning Initial 2 hrs 020 Work Conditioning add 1 hr Work Conditioning Initial 2 hrs 020 Work Conditioning add 1 hr Work Conditioning Initial 2 hrs 020 Work Conditioning add 1 hr Work Conditioning Initial 2 hrs 020 Work Conditioning add 1 hr Work Conditioning Initial 2 hrs 020 Work Conditioning add 1 hr Work Conditioning Initial 2 hrs 020 Work Conditioning add 1 hr Work Conditioning Initial 2 hrs 020 Work Conditioning add 1 hr Work Conditioning Initial 2 hrs 020 Work Conditioning add 1 hr Work Conditioning Initial 2 hrs 020 Work Conditioning add 1 hr 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 Therapeutic Activities Neuromuscular Re-Ed Therapeutic Exercise Manual Therapy Therapeutic Activities Therapeutic Exercise Neuromuscular Re-Ed Manual Therapy Therapeutic Activities Neuromuscular Re-Ed Therapeutic Exercise Manual Therapy Therapeutic Activities Neuromuscular Re-Ed Therapeutic Exercise Manual Therapy Therapeutic Activities Neuromuscular Re-Ed Therapeutic Exercise Therapeutic Activities Neuromuscular Re-Ed Therapeutic Exercise Manual Therapy Therapeutic Activities Neuromuscular Re-Ed Therapeutic Exercise Manual Therapy Therapeutic Activities Neuromuscular Re-Ed Therapeutic Exercise Manual Therapy PT Evaluation Low Complexity Neuromuscular Re-Ed Therapeutic Exercise Therapeutic Exercise Biodex Testing Progress Note Therapeutic Activities Neuromuscular Re-Ed Therapeutic Exercise Manual Therapy Therapeutic Activities Neuromuscular Re-Ed Therapeutic Exercise Manual Therapy Electrical Stimulation Therapeutic Activities Neuromuscular Re-Ed Therapeutic Exercise Manual Therapy Electrical Stimulation Therapeutic Activities Neuromuscular Re-Ed Therapeutic Exercise Manual Therapy Electrical Stimulation Therapeutic Activities Neuromuscular Re-Ed Therapeutic Exercise Manual Therapy Electrical Stimulation Therapeutic Activities Neuromuscular Re-Ed Electrical Stimulation Therapeutic Exercise Therapeutic Activities Therapeutic Exercise Neuromuscular Re-Ed Electrical Stimulation Therapeutic Activities Neuromuscular Re-Ed Therapeutic Exercise Electrical Stimulation Therapeutic Activities Neuromuscular Re-Ed Therapeutic Exercise Electrical Stimulation Therapeutic Activities Neuromuscular Re-Ed Electrical Stimulation Therapeutic Exercise Therapeutic Activities Neuromuscular Re-Ed Electrical Stimulation Therapeutic Exercise Therapeutic Activities Neuromuscular Re-Ed Therapeutic Exercise Therapeutic Activities Neuromuscular Re-Ed Therapeutic Exercise Therapeutic Activities Neuromuscular Re-Ed Therapeutic Exercise Therapeutic Exercise Therapeutic Activities Electrical Stimulation Neuromuscular Re-Ed Therapeutic Exercise Therapeutic Activities Neuromuscular Re-Ed Electrical Stimulation Therapeutic Exercise Therapeutic Activities Neuromuscular Re-Ed Electrical Stimulation Therapeutic Exercise Therapeutic Activities Neuromuscular Re-Ed Unknown Date Of Service Therapeutic Exercise Therapeutic Activities Neuromuscular Re-Ed Electrical Stimulation Progress Note Therapeutic Exercise Therapeutic Activities Neuromuscular Re-Ed Therapeutic Exercise Therapeutic Activities Neuromuscular Re-Ed Electrical Stimulation Therapeutic Exercise Therapeutic Activities Neuromuscular Re-Ed Electrical Stimulation Therapeutic Exercise Therapeutic Activities Neuromuscular Re-Ed Electrical Stimulation Therapeutic Exercise Therapeutic Activities Neuromuscular Re-Ed Electrical Stimulation Therapeutic Exercise Therapeutic Activities Neuromuscular Re-Ed Therapeutic Exercise Therapeutic Activities Neuromuscular Re-Ed Therapeutic Exercise Therapeutic Activities Neuromuscular Re-Ed Electrical Stimulation Progress Note Therapeutic Exercise Therapeutic Activities Neuromuscular Re-Ed Manual Therapy Electrical Stimulation Therapeutic Exercise Neuromuscular Re-Ed Therapeutic Activities Manual Therapy Therapeutic Exercise Therapeutic Activities Neuromuscular Re-Ed Manual Therapy Electrical Stimulation Therapeutic Exercise Therapeutic Activities Neuromuscular Re-Ed Manual Therapy Therapeutic Exercise Therapeutic Activities Neuromuscular Re-Ed Electrical Stimulation Therapeutic Exercise Therapeutic Activities Neuromuscular Re-Ed Manual Therapy Therapeutic Exercise Therapeutic Activities Neuromuscular Re-Ed Manual Therapy Electrical Stimulation Progress Note Therapeutic Exercise Therapeutic Activities Neuromuscular Re-Ed Manual Therapy Electrical Stimulation Therapeutic Exercise Therapeutic Activities Neuromuscular Re-Ed Manual Therapy Therapeutic Exercise Therapeutic Activities Neuromuscular Re-Ed Manual Therapy Electrical Stimulation Therapeutic Exercise Therapeutic Activities Neuromuscular Re-Ed Manual Therapy Electrical Stimulation Gait Training PT Re-evaluation Therapeutic Exercise Therapeutic Activities Neuromuscular Re-Ed Electrical Stimulation Progress Note Therapeutic Exercise Therapeutic Activities Neuromuscular Re-Ed Manual Therapy Therapeutic Exercise Therapeutic Activities Neuromuscular Re-Ed Manual Therapy Electrical Stimulation Therapeutic Exercise Therapeutic Activities Neuromuscular Re-Ed Manual Therapy Electrical Stimulation Gait Training Therapeutic Exercise Therapeutic Activities Neuromuscular Re-Ed Manual Therapy Electrical Stimulation Therapeutic Exercise Therapeutic Activities Neuromuscular Re-Ed Manual Therapy Electrical Stimulation Therapeutic Exercise Therapeutic Activities Neuromuscular Re-Ed Manual Therapy Electrical Stimulation Therapeutic Exercise Therapeutic Activities Neuromuscular Re-Ed Manual Therapy Therapeutic Exercise Therapeutic Activities Neuromuscular Re-Ed Manual Therapy Therapeutic Exercise Therapeutic Activities Manual Therapy Therapeutic Exercise Therapeutic Activities Neuromuscular Re-Ed Manual Therapy Electrical Stimulation Therapeutic Exercise Therapeutic Activities Neuromuscular Re-Ed Manual Therapy Electrical Stimulation Therapeutic Exercise Therapeutic Activities Neuromuscular Re-Ed Manual Therapy Electrical Stimulation Therapeutic Exercise Therapeutic Activities Neuromuscular Re-Ed Manual Therapy Progress Note Therapeutic Exercise Therapeutic Activities Neuromuscular Re-Ed Manual Therapy Hot or Cold Pack Electrical Stimulation Therapeutic Exercise Therapeutic Activities Neuromuscular Re-Ed Manual Therapy Hot or Cold Pack Electrical Stimulation Therapeutic Exercise Therapeutic Activities Neuromuscular Re-Ed Manual Therapy Therapeutic Exercise Therapeutic Activities Neuromuscular Re-Ed Manual Therapy Hot or Cold Pack Electrical Stimulation Therapeutic Exercise Therapeutic Activities Neuromuscular Re-Ed Manual Therapy Hot or Cold Pack Electrical Stimulation Therapeutic Exercise Therapeutic Activities Neuromuscular Re-Ed Manual Therapy Hot or Cold Pack Electrical Stimulation Therapeutic Exercise Therapeutic Activities Neuromuscular Re-Ed Manual Therapy Therapeutic Exercise Therapeutic Activities Neuromuscular Re-Ed Manual Therapy Hot or Cold Pack Electrical Stimulation Therapeutic Exercise Therapeutic Activities Neuromuscular Re-Ed Manual Therapy Therapeutic Exercise Neuromuscular Re-Ed Manual Therapy Hot or Cold Pack Electrical Stimulation Therapeutic Exercise Therapeutic Activities Neuromuscular Re-Ed Manual Therapy Therapeutic Exercise Therapeutic Activities Neuromuscular Re-Ed Manual Therapy Therapeutic Exercise Therapeutic Activities Neuromuscular Re-Ed Manual Therapy Electrical Stimulation Therapeutic Exercise Therapeutic Activities Neuromuscular Re-Ed Manual Therapy Electrical Stimulation Therapeutic Exercise Therapeutic Activities Manual Therapy Hot or Cold Pack PT Evaluation Moderate Complexity Therapeutic Exercise Manual Therapy Progress Note Therapeutic Exercise Therapeutic Activities Neuromuscular Re-Ed Manual Therapy Therapeutic Exercise Therapeutic Activities Neuromuscular Re-Ed Manual Therapy Therapeutic Exercise Therapeutic Activities Neuromuscular Re-Ed Manual Therapy Therapeutic Exercise Therapeutic Activities Neuromuscular Re-Ed Manual Therapy Progress Note Therapeutic Exercise Therapeutic Activities Neuromuscular Re-Ed Manual Therapy Therapeutic Exercise Therapeutic Activities Neuromuscular Re-Ed Manual Therapy Therapeutic Exercise Therapeutic Activities Neuromuscular Re-Ed Manual Therapy Progress Note Therapeutic Exercise Therapeutic Activities Manual Therapy Therapeutic Exercise Manual Therapy Therapeutic Exercise Manual Therapy PT Evaluation Moderate Complexity Therapeutic Exercise Manual Therapy Advance Directives Directive Yes / No Effective Date File Name No Information Encounters Encounter Description Practice Location Reason(s) For Visit Diagnoses Date Provider Providers Copied on Encounter [facility], [address], [place], [place], [id number], [place] tel:[phone] [place] No Information 9- 0 Wurm Nish. . Referring Provider: Noel Reynolds Jr, [address], [place], [address]. tel:[phone] [facility] [address], [place], [place], [address], [place] tel:[phone] [place] No Information 0-202 0 [place]. . Referring Provider: Noel Reynolds Jr, [address], [place], [address]. tel:[phone] [facility], [place], [place], [address], [place] tel:[phone] [place] No Information [address] [facility], [address], [place], [address], [place]. tel:[phone] Referring Provider: Noel Reynolds Jr, [address], [place], [address]. tel:[phone] [facility] [address], [place], [place], [address], [place] tel:[phone] [place] No Information [address] [facility], [address], [place], [address], [place]. tel:[phone] Referring Provider: Noel Reynolds Jr, [address], [place], [address]. tel:[phone] [facility] [address], [place], [place], [address], [place] tel:[phone] [place] No Information [address] [facility], [address], [place], [address], [place]. tel:[phone] Referring Provider: Noel Reynolds Jr, [address], [place], [address]. tel:[phone] [address], [place], [place], [address], tel:[phone] [place] No Information Paxton-1 0-[address] [facility], [address], [place], [address], [place]. tel:[phone] Referring Provider: Noel Reynolds Jr, [address], [place], [address]. tel:[phone] [address], [place], [place], [address], [place] tel:[phone] [place] No Information Paxton-0 8-202 0 Stief Antonella. [address] [place] [address], [address], [place], [address], [place]. tel:[phone] Referring Provider: Noel Reynolds Jr, [address], [place], [address]. tel:[phone] [address], [place], [place], [address], [place] tel:[phone] [place] No Information Paxton-0 6-202 0 Stief Antonella. [address] [place] [address], [address], [place], [address], [place]. tel:[phone] Referring Provider: Noel Reynolds Jr, [address], [place], [address]. tel:[phone] [address], [place], [place], [address], [place] tel:[phone] [place] No Information Paxton-0 2-[address] [facility], [address], [place], [address], [place]. tel:[phone] Referring Provider: Noel Reynolds Jr, [address], [place], [address]. tel:[phone], [place], [place], [address], [place] tel:[phone] [place] No Information -202 0 Stief Antonella. [address] [place] [address], [address], [place], [address], [place]. tel:[phone] Referring Provider: Noel Reynolds Jr, [address], [place], [address]. tel:[phone] [address], [place], [place], [address], [place] tel:[phone] [place] No Information 0 Stief Antonella. [address] [place] [address], [address], [place], [address], [place]. tel:[phone] Referring Provider: Noel Reynolds Jr, [address], [place], [address]. tel:[phone] [address], [place], [place], [address], [place] tel:[phone] [place] No Information 0 Stief Antonella. [address] [place] [address], [address], [place], [address], [place]. tel:[phone] Referring Provider: Noel Reynolds Jr, [address], [place], [address]. tel:[phone], [place], [place], [address], [place] tel:[phone] [place] No Information 0 Stief Antonella. [address] [place] [address], [address], [place], [address], [place]. tel:[phone] Referring Provider: Noel Reynolds Jr, [address], [place], [address]. tel:[phone], [place], [place], [address], tel:[phone] [place] No Information 9- 0 Stief Antonella. [address] [place] [address], [address], [place], [place], [facility], [place]. tel:[phone] Referring Provider: Noel Reynolds Jr, [address], [place], [address]. tel:[phone] [place] [address] [address], [place], [place], [address], tel:[phone] [place] No Information 7- 0 Stief Antonella. [address] [place] [address], [address], [place], [facility], [place]. tel:[phone] Referring Provider: Noel Reynolds Jr, [address], [place], [address]. tel:[phone] [place] [address], [place], [address], tel:[phone] [place] No Information 5-202 0 Threlkeld Yissel. . Referring Provider: Noel Reynolds Jr, [address], [place], [address]. tel:[phone] [place] [address], [place], [address], tel:[phone] [place] No Information 2-202 0 Stief Antonella. [address] [place] [address], [address], [place], [address], [place]. tel:[phone] Referring Provider: Noel Reynolds Jr, [address], [place], [address]. tel:[phone] [address], [place], [place], [address], tel:[phone] [place] No Information Aug- 0-202 0 Stief Antonella. [address] [place] [address], [address], [place], [address], [place]. tel:[phone] Referring Provider: Noel Reynolds Jr, [address], [place], [address]. tel:[phone] [facility], [address] [place], [place] [address], [place], [place], [address], [place] tel:[phone] [place] No Information Nelson-0 8-[address] [facility], [address], [place], [address], [place]. tel:[phone] Referring Provider: Noel Reynolds Jr, [address], [place], [address]. tel:[phone], [id number], tel:[phone] [place] No Information Nelson-0 5-[address] [facility], [address], [place], [address], [place]. tel:[phone] Referring Provider: Noel Reynolds Jr, [address], [place], [address]. tel:[phone] [facility] [address] [place], [place] [address], [place], [place], [address], [place] tel:[phone] [place] No Information Nelson-0 3-202 0 Krack Raya. . Referring Provider: Noel Reynolds Jr, [address], [place], [address]. tel:[phone] [facility] [address] [place] [address], [place], [place], [address], [place] tel:[phone] [place] No Information Nelson-0 1-202 0 Krack Raya. . Referring Provider: Noel Reynolds Jr, [address], [place], [address]. tel:[phone] [facility] [address], [place], [place], [address], [place] tel:[phone] [place] No Information May-2 7-[address] [facility], [address], [place], [address], [place]. tel:[phone] Referring Provider: Noel Reynolds Jr, [address], [place], [address]. tel:[phone] [address], [place], [place], [address], tel:[phone] [place] No Information May-2 6-[address] [facility], [address], [place], [address], [place]. tel:[phone] Referring Provider: Noel Reynolds Jr, [address], [place], [address]. tel:[phone] [address], [place], [place], [address], tel:[phone] [place] No Information July-2 2-[address] [facility], [address], [place], [address], [place]. tel:[phone] Referring Provider: Noel Reynolds Jr, [address], [place], [address]. tel:[phone] [address], [place], [place], [address], [place] tel:[phone] [place] No Information May-2 0-202 0 Trevor Dos Santos. . Referring Provider: Noel Reynolds Jr, [address], [place], [address]. tel:[phone], [place], [place], [address], [place] tel:[phone] [place] No Information May-0 6-202 0 Wurm Nish. . Referring Provider: Noel Reynolds Jr, [address], [place], [address]. tel:[phone] [facility], [address], [place], [place], [address], [place] tel:[phone] [place] No Information Apr-2 7-202 0 David Ross. . Referring Provider: Noel Reynolds Jr, [address], [place], [address]. tel:[phone] [facility] [address], [place], [place], [address], [place] tel:[phone] [place] No Information Apr-2 4-202 0 Stief Antonella. [address] [place] [address], [address], [place], [address], [place]. tel:[phone] Referring Provider: Noel Reynolds Jr, [address], [place], [address]. tel:[phone] [facility] [address] [place], [place] [address], [place], [place], [address], [place] tel:[phone] [place] No Information Apr-0 1-202 0 Stief Antonella. [address] [place] [address], [address], [place], [address], [place]. tel:[phone] Referring Provider: Noel Reynolds Jr, [address], [place], [address]. tel:[phone] [facility] [address], [place], [place], [address], [place] tel:[phone] [place] No Information Mar-3 0-202 0 Stief Antonella. [address] [place] [address], [address], [place], [address], [place]. tel:[phone] Referring Provider: Noel Reynolds Jr, [address], [place], [address]. tel:[phone] [facility], [address], [place], [place], [address], [place] tel:[phone] [place] No Information Mar-2 7-202 0 Stief Antonella. [address] [place] [address], [address], [place], [address], [place]. tel:[phone] Referring Provider: Noel Reynolds Jr, [address], [place], [address]. tel:[phone] [address], [place], [place], [address], [place] tel:[phone] [place] No Information Mar-2 5-202 0 Stief Antonella. [address] [place] [address], [address], [place], [address], [place]. tel:[phone] Referring Provider: Noel Reynolds Jr, [address], [place], [address]. tel:[phone], [place], [place], [address], tel:[phone] [place] No Information Mar-2 3-202 0 Stief Antonella. [address] [place] [address], [address], [place], [address], [place]. tel:[phone] Referring Provider: Noel Reynolds Jr, [address], [place], [address]. tel:[phone] [address], [place], [place], [address], [place] tel:[phone] [place] No Information Mar-2 0-202 0 Stief Antonella. [address] [place] [address], [address], [place], [address], [place]. tel:[phone] Referring Provider: Noel Reynolds Jr, [address], [place], [address]. tel:[phone] [address], [place], [place], [address], [place] tel:[phone] [place] No Information Mar-1 9-202 0 Stief Antonella. [address] [place] [address], [address], [place], [address], [place]. tel:[phone] Referring Provider: Noel Reynolds Jr, [address], [place], [address]. tel:[phone] [address], [place], [place], [address], tel:[phone] [place] No Information Mar-1 6-202 0 Stief Antonella. [address] [place] [address], [address], [place], [place], [facility], [place]. tel:[phone] Referring Provider: Noel Reynolds Jr, [address], [place], [address]. tel:[phone] [address], [address], tel:[phone] [place] No Information Mar-1 3-202 0 Muehl J[place]. [address] [place] [address], [address], [place], [place], [facility], [place]. tel:[phone] Referring Provider: Noel Reynolds Jr, [address], [place], [address]. tel:[phone] [address], [place], [address], tel:[phone] [place] No Information Mar-1 1-202 0 Adlon Cortney. . Referring Provider: Noel Reynolds Jr, [address], [place], [address]. tel:[phone] [address], [place], [place], [address], [place] tel:[phone] [place] No Information Mar-0 2-202 0 Stief Antonella. [address] [place] [address], [address], [place], [address], [place]. tel:[phone] Referring Provider: Noel Reynolds Jr, [address], [place], [address]. tel:[phone] [address], [place], [place], [address], tel:[phone] [place] No Information 0 Stief Antonella. [address] [place] [address], [address], [place], [address], . tel:[phone] Referring Provider: Noel Reynolds Jr, [address], [place], [address]. tel:[phone] [address], [place], [place], [address], tel:[phone] [place] No Information 0 Stief Antonella. [address] [place] [address], [address], [place], [address], [place]. tel:[phone] Referring Provider: Noel Reynolds Jr, [address], [place], [address]. tel:[phone] [address], [place], [place], [address], tel:[phone] [place] No Information 0 Stief Antonella. [address] [place] [address], [address], [place], [address], [place]. tel:[phone] Referring Provider: Noel Reynolds Jr, [address], [place], [address]. tel:[phone] [address], [place], [place], [address], [place] tel:[phone] [place] No Information 0 Stief Antonella. [address] [place] [address], [address], [place], [address], [place]. tel:[phone] Referring Provider: Noel Reynolds Jr, [address], [place], [address]. tel:[phone] [address], [place], [place], [address], tel:[phone] [place] No Information [address] [facility], [address], [place], [address], [place]. tel:[phone] Referring Provider: Noel Reynolds Jr, [address], [place], [address]. tel:[phone] [facility], [address] [facility], [place], [place], [address], [place] tel:[phone] [place] No Information 0 Trevor Dos Santos. . Referring Provider: Noel Reynolds Jr, [address], [place], [address]. tel:[phone] [facility] [address] [place], [place] [address], [place], [place], [address], [place] tel:[phone] [place] No Information [address] [facility], [address], [place], [address], [place]. tel:[phone] Referring Provider: Noel Reynolds Jr, [address], [place], [address]. tel:[phone] [facility] [address] [place], [place] [address] [address], [place], [place], [address], [place] tel:[phone] [place] No Information [address] [facility], [address], [place], [address], [place]. tel:[phone] Referring Provider: Noel Reynolds Jr, [address], [place], [address]. tel:[phone] [facility] [address] [facility], [place], [place], [address], [place] tel:[phone] [place] No Information [address] . Referring Provider: Noel Reynolds Jr, [address], [place], [address]. tel:[phone] [facility] [address], [place], [place], [address], tel:[phone] [place] No Information 9 Stief Antonella. [address] [place] [address], [address], [place], [place], [facility], . tel:[phone] Referring Provider: Noel Reynolds Jr, [address], [place], [address]. tel:[phone] [facility] [address], [place], [place], [address], tel:[phone] [place] No Information 9 Stief Antonella. [address] [place] [address], [address], [place], [facility], . tel:[phone] Referring Provider: Noel Reynolds Jr, [address], [place], [address]. tel:[phone] [facility] [address] [place] [address], [place], [place], [address], tel:[phone] [place] No Information 9 Stief Antonella. [address] [place] [address], [address], [place], [address], [place]. tel:[phone] Referring Provider: Noel Reynolds Jr, [address], [place], [address]. tel:[phone] [facility] [address], [place], [place], [address], [place] tel:[phone] [place] No Information 9 Stief Antonella. [address] [place] [address], [address], [place], [address], [place]. tel:[phone] Referring Provider: Noel Reynolds Jr, [address], [place], [address]. tel:[phone] [facility] [facility], [place], [place], [address], [place] tel:[phone] [place] No Information Dec-1 1-[address] [facility], [address], [place], [address], [place]. tel:[phone] Referring Provider: Noel Reynolds Jr, [address], [place], [address]. tel:[phone] [address], [place], [place], [address], [place] tel:[phone] [place] No Information Dec-0 7-201 9 Stief Antonella. [address] [place] [address], [address], [place], [address], [place]. tel:[phone] Referring Provider: Noel Reynolds Jr, [address], [place], [address]. tel:[phone] [address], [place], [place], [address], [place] tel:[phone] [place] No Information Dec-0 4-201 9 Stief Antonella. [address] [place] [address], [address], [place], [address], [place]. tel:[phone] Referring Provider: Noel Reynolds Jr, [address], [place], [address]. tel:[phone], [place], [place], [address], [place] tel:[phone] [place] No Information Dec-0 2-201 9 Stief Antonella. [address] [place] [address], [address], [place], [address], [place]. tel:[phone] Referring Provider: Noel Reynolds Jr, [address], [place], [address]. tel:[phone] [facility], [address] [place] [address] [address], [place], [place], [address], [place] tel:[phone] [place] No Information Nov-2 7-201 9 Stief Antonella. [address] [place] [address], [address], [place], [address], [place]. tel:[phone] Referring Provider: Noel Reynolds Jr, [address], [place], [address]. tel:[phone] [address], [place], [place], [address], tel:[phone] [place] No Information Sep-2 3-201 9 Stief Antonella. [address] [place] [address], [address], [place], [address], [place]. tel:[phone] Referring Provider: Noel Reynolds Jr, [address], [place], [address]. tel:[phone] [place] [address], [id number], tel:[phone] [place] No Information Sep-2 0-201 9 Stief Antonella. [address] [place] [address], [address], [place], [address], [place]. tel:[phone] Referring Provider: Noel Reynolds Jr, [address], [place], [address]. tel:[phone] [address], [place], [place], [address], [place] tel:[phone] [place] No Information Sep-1 6-201 9 Stief Antonella. [address] [place] [address], [address], [place], [address], [place]. tel:[phone] Referring Provider: Noel Reynolds Jr, [address], [place], [address]. tel:[phone], [address], [place] tel:[phone] [place] No Information Sep-1 3-201 9 Stief Antonella. [address] [place] [address], [address], [place], [address], [place]. tel:[phone] Referring Provider: Noel Reynolds Jr, [address], [place], [address]. tel:[phone], [place], [place], [address], [place] tel:[phone] [place] No Information Sep-0 9-201 9 Stief Antonella. [address] [place] [address], [address], [place], [address], [place]. tel:[phone] Referring Provider: Noel Reynolds Jr, [address], [place], [address]. tel:[phone] [address], [place], [place], [address], [place] tel:[phone] [place] No Information Nov-0 3- 9 Stief Antonella. [address] [place] [address], [address], [place], [address], [place]. tel:[phone] Referring Provider: Noel Reynolds Jr, [address], [place], [address]. tel:[phone] [address], [place], [place], [address], [place] tel:[phone] [place] No Information Oct-2 9 Stief Antonella. [address] [place] [address], [address], [place], [address], [place]. tel:[phone] Referring Provider: Noel Reynolds Jr, [address], [place], [address]. tel:[phone] [address], [place], [place], [address], [place] tel:[phone] [place] No Information Oct-2 9 Stief Antonella. [address] [place] [address], [address], [place], [address], [place]. tel:[phone] Referring Provider: Noel Reynolds Jr, [address], [place], [address]. tel:[phone] [facility] [address], [place], [place], [address], [place] tel:[phone] [place] No Information [address] [facility], [address], [place], [address], [place]. tel:[phone] Referring Provider: Noel Reynolds Jr, [address], [place], [address]. tel:[phone] [facility] [address], [place], [place], [address], [place] tel:[phone] [place] No Information [address] . Referring Provider: Noel Reynolds Jr, [address], [place], [address]. tel:[phone] [facility] [address], [place], [place], [address], [place] tel:[phone] [place] No Information 9 Stief Antonella. [address] [place] [address], [address], [place], [address], [place]. tel:[phone] Referring Provider: Noel Reynolds Jr, [address], [place], [address]. tel:[phone] [facility] [address], [place], [place], [address], [place] tel:[phone] [place] No Information 9 Stief Antonella. [address] [place] [address], [address], [place], [address], [place]. tel:[phone] Referring Provider: Noel Reynolds Jr, [address], [place], [address]. tel:[phone] [facility], [facility] [address], [place], [place], [address], [place] tel:[phone] [place] No Information [address] [facility], [address], [place], [address], [place]. tel:[phone] Referring Provider: Noel Reynolds Jr, [address], [place], [address]. tel:[phone] [facility], [address], [place], [place], [address], [place] tel:[phone] [place] No Information [address] [facility], [address], [place], [address], [place]. tel:[phone] Referring Provider: Noel Reynolds Jr, [address], [place], [address]. tel:[phone] [facility] [address] [place], [place] [address], [place], [place], [address], [place] tel:[phone] [place] No Information [address] [facility], [address], [place], [address], [place]. tel:[phone] Referring Provider: Noel Reynolds Jr, [address], [place], [address]. tel:[phone] [facility] [address], [place], [place], [address], [place] tel:[phone] [place] No Information 9 Niederhoffer Xin. . Referring Provider: Noel Reynolds Jr, [address], [place], [address]. tel:[phone] [facility], [place], [place], [address], [place] tel:[phone] [place] No Information 9 Niederhoffer Xin. . Referring Provider: Noel Reynolds Jr, [address], [place], [address]. tel:[phone] [facility], [place], [place], [address], tel:[phone] [place] No Information 9 Stief Antonella. [address] [place] [address], [address], [place], [place], [facility], . [phone] Referring Provider: Noel Reynolds Jr, [address], [place], [address]. tel:[phone] [facility] [address] [facility], [place], [place], [address], tel:[phone] [place] No Information 9 Stief Antonella. [address] [place] [address], [address], [place], [facility], . [phone] Referring Provider: Noel Reynolds Jr, [address], [place], [address]. tel:[phone] [facility] [address] [facility], [place], [place], [address], tel:[phone] [place] No Information 9 Stief Antonella. [address] [place] [address], [address], [place], [address], [place]. tel:[phone] Referring Provider: Noel Reynolds Jr, [address], [place], [address]. tel:[phone] [facility] [address] [facility] [address], [place], [place], [address], tel:[phone] [place] No Information 9 Muehl Eugene. [address] [place] [address], [address], [place], [address], [place]. tel:[phone] Referring Provider: Noel Reynolds Jr, [address], [place], [address]. tel:[phone] [facility] [facility], [place], [place], [address], tel:[phone] [place] No Information [address] [facility], [address], [place], [address], [place]. tel:[phone] Referring Provider: Noel Reynolds Jr, [address], [place], [address]. tel:[phone] [facility] [address] [place], [place] [address], [place], [place], [address], [place] tel:[phone] [place] No Information 0 [address] [facility], [address], [place], [address], [place]. tel:[phone] Referring Provider: Noel Reynolds Jr, [address], [place], [address]. tel:[phone] [facility] [address] [place], [place] [address], [place], [place], [address], [place] tel:[phone] [place] Pain in right kneeStiffness of right knee, not elsewhere classifiedOth symptoms and signs involving the musculoskelet al systemUnspeci fied abnormalities of gait and mobilityOther abnormalities of gait and mobility 0 9 Stisarah Berman. [address] [place] [address], [address], [place], [address], [place]. tel:[phone] Referring Provider: Noel Reynolds Jr, [address], [place], [address]. tel:[phone] [facility] [address] [facility], [place], [place], [address], [place] tel:[phone] [place] Pain in right kneeStiffness of right knee, not elsewhere classifiedOth symptoms and signs involving the musculoskelet al systemUnspeci fied abnormalities of gait and mobilityOther abnormalities of gait and mobility [address] [facility], [address], [place], [address], [place]. tel:[phone] Referring Provider: Noel Reynolds Jr, [address], [place], [address]. tel:[phone] [facility], [place], [place], [address], [place] tel:[phone] [place] Pain in right kneeStiffness of right knee, not elsewhere classifiedOth symptoms and signs involving the musculoskelet al systemUnspeci fied abnormalities of gait and mobilityOther abnormalities of gait and mobility [address] [facility], [address], [place], [address], [place]. tel:[phone] Referring Provider: Noel Reynolds Jr, [address], [place], [address]. tel:[phone] [facility], [place], [place], [address], [place] tel:[phone] [place] Pain in right kneeStiffness of right knee, not elsewhere classifiedOth symptoms and signs involving the musculoskelet al systemUnspeci fied abnormalities of gait and mobilityOther abnormalities of gait and mobility [address] [facility], [address], [place], [address], [place]. tel:[phone] Referring Provider: Noel Reynolds Jr, [address], [place], [address]. tel:[phone] [facility], [place], [place], [address], [place] tel:[phone] [place] Pain in right kneeStiffness of right knee, not elsewhere classifiedOth symptoms and signs involving the musculoskelet al systemUnspeci fied abnormalities of gait and mobilityOther abnormalities of gait and mobility 9 Stella Lauren. . Referring Provider: Noel Reynolds Jr, [address], [place], [address]. tel:[phone] [facility], [place], [place], [address], [place] tel:[phone] [place] Pain in right kneeStiffness of right knee, not elsewhere classifiedOth symptoms and signs involving the musculoskelet al systemUnspeci fied abnormalities of gait and mobilityOther abnormalities of gait and mobility Nelson-1 2-201 9 Stief Antonella. [address] [place] [address], [address], [place], [address], [place]. tel:[phone] Referring Provider: Noel Reynolds Jr, [address], [place], [address]. tel:[phone], [place], [place], [address], [place] tel:[phone] [place] Pain in right kneeStiffness of right knee, not elsewhere classifiedOth symptoms and signs involving the musculoskelet al systemUnspeci fied abnormalities of gait and mobilityOther abnormalities of gait and mobility Nelson-1 0-201 9 Stisarah Antonella. [address] [place] [address], [address], [place], [address], [place]. tel:[phone] Referring Provider: Noel Reynolds Jr, [address], [place], [address]. tel:[phone], [place], [place], [address], [place] tel:[phone] [place] Pain in right kneeStiffness of right knee, not elsewhere classifiedOth symptoms and signs involving the musculoskelet al systemUnspeci fied abnormalities of gait and mobilityOther abnormalities of gait and mobility Nelson-0 7-201 9 Stisarah Maldonadoen. [address] [place] [address], [address], [place], [address], [place]. tel:[phone] Referring Provider: Noel Reynolds Jr, [address], [place], [address]. tel:[phone], [place], [place], [address], [place] tel:[phone] [place] Pain in right kneeStiffness of right knee, not elsewhere classifiedOth symptoms and signs involving the musculoskelet al systemUnspeci fied abnormalities of gait and mobilityOther abnormalities of gait and mobility May-0 3-[address] [facility], [address], [place], [address], [place]. tel:[phone] Referring Provider: Noel Reynolds Jr, [address], [place], [address]. tel:[phone], [place], [place], [address], [place] tel:[phone] [place] Pain in right kneeStiffness of right knee, not elsewhere classifiedOth symptoms and signs involving the musculoskelet al systemUnspeci fied abnormalities of gait and mobilityOther abnormalities of gait and mobility Apr-2 9-[address] [facility], [address], [place], [address], [place]. tel:[phone] Referring Provider: Noel Reynolds Jr, [address], [place], [address]. tel:[phone] [facility] [address], [place], [place], [address], [place] tel:[phone] [place] Pain in right kneeStiffness of right knee, not elsewhere classifiedOth symptoms and signs involving the musculoskelet al systemUnspeci fied abnormalities of gait and mobilityOther abnormalities of gait and mobility Apr-2 6-[address] [facility], [address], [place], [address], [place]. tel:[phone] Referring Provider: Noel Reynolds Jr, [address], [place], [address]. tel:[phone], [place], [place], [address], [place] tel:[phone] [place] Pain in right kneeStiffness of right knee, not elsewhere classifiedOth symptoms and signs involving the musculoskelet al systemUnspeci fied abnormalities of gait and mobilityOther abnormalities of gait and mobility Apr-2 2-[address] [facility], [address], [place], [address], [place]. tel:[phone] Referring Provider: Noel Reynolds Jr, [address], [place], [address]. tel:[phone] [facility], [address] [place] [address] [address], [place], [place], [address], [place] tel:[phone] [place] Pain in right kneeStiffness of right knee, not elsewhere classifiedOth symptoms and signs involving the musculoskelet al systemUnspeci fied abnormalities of gait and mobilityOther abnormalities of gait and mobility Apr-1 9-201 9 Stief Antonella. [address] [place] [address], [address], [place], [address], [place]. tel:[phone] Referring Provider: Noel Reynolds Jr, [address], [place], [address]. tel:[phone], [place], [place], [address], [place] tel:[phone] [place] Pain in right kneeStiffness of right knee, not elsewhere classifiedOth symptoms and signs involving the musculoskelet al systemUnspeci fied abnormalities of gait and mobilityOther abnormalities of gait and mobility Apr-1 5-201 9 Stisarah Berman. [address] [place] [address], [address], [place], [address], [place]. tel:[phone] Referring Provider: Noel Reynolds Jr, [address], [place], [address]. tel:[phone], [place], [place], [address], [place] tel:[phone] [place] Pain in right kneeStiffness of right knee, not elsewhere classifiedOth symptoms and signs involving the musculoskelet al systemUnspeci fied abnormalities of gait and mobilityOther abnormalities of gait and mobility Apr-1 2-201 9 Stief Antonella. [address] [place] [address], [address], [place], [address], [place]. tel:[phone] Referring Provider: Noel Reynolds Jr, [address], [place], [address]. tel:[phone] [address], [place], [place], [address], [place] tel:[phone] [place] Pain in right kneeStiffness of right knee, not elsewhere classifiedOth symptoms and signs involving the musculoskelet al systemUnspeci fied abnormalities of gait and mobilityOther abnormalities of gait and mobility Apr-0 8-201 9 Stief Antonella. [address] [place] [address], [address], [place], [facility], [place]. tel:[phone] Referring Provider: Noel Reynolds Jr, [address], [place], [address]. tel:[phone] [address], [place], [place], [address], [place] tel:[phone] [place] Pain in right kneeStiffness of right knee, not elsewhere classifiedOth symptoms and signs involving the musculoskelet al systemUnspeci fied abnormalities of gait and mobilityOther abnormalities of gait and mobility Apr-0 5-201 9 Stief Antonella. [address] [place] [address], [address], [place], [place], [facility], [place]. tel:[phone] Referring Provider: Noel Reynolds Jr, [address], [place], [address]. tel:[phone] [address], [place], [place], [id number], [place] tel:[phone] [place] Pain in right kneeStiffness of right knee, not elsewhere classifiedOth symptoms and signs involving the musculoskelet al systemUnspeci fied abnormalities of gait and mobilityOther abnormalities of gait and mobility Apr-0 1-[address] [facility], [address], [place], [address], [place]. tel:[phone] Referring Provider: Noel Reynolds Jr, [address], [place], [address]. tel:[phone] [facility], [place], [place], [id number], [place] tel:[phone] [place] Pain in right kneeStiffness of right knee, not elsewhere classifiedOth symptoms and signs involving the musculoskelet al systemUnspeci fied abnormalities of gait and mobilityOther abnormalities of gait and mobility Mar-2 9-[address] [facility], [address], [place], [address], [place]. tel:[phone] Referring Provider: Noel Reynolds Jr, [address], [place], [address]. tel:[phone] [facility], [place], [place], [address], [place] tel:[phone] [place] Pain in right kneeStiffness of right knee, not elsewhere classifiedOth symptoms and signs involving the musculoskelet al systemUnspeci fied abnormalities of gait and mobilityOther abnormalities of gait and mobility Mar-2 5-[address] [facility], [address], [place], [address], [place]. tel:[phone] Referring Provider: Noel Reynolds Jr, [address], [place], [address]. tel:[phone] [facility], [place], [place], [id number], [place] tel:[phone] [place] Pain in right kneeStiffness of right knee, not elsewhere classifiedOth symptoms and signs involving the musculoskelet al systemUnspeci fied abnormalities of gait and mobilityOther abnormalities of gait and mobility Mar-2 2-201 9 Stella Lauren. . Referring Provider: Noel Reynolds Jr, [address], [place], [address]. tel:[phone] [facility], [place], [place], [address], [place] tel:[phone] [place] Pain in right kneeStiffness of right knee, not elsewhere classifiedOth symptoms and signs involving the musculoskelet al systemUnspeci fied abnormalities of gait and mobilityOther abnormalities of gait and mobility Mar-2 0-[address] [facility], [address], [place], [address], [place]. tel:[phone] Referring Provider: Noel Reynolds Jr, [address], [place], [address]. tel:[phone] [facility], [place], [place], [address], [place] tel:[phone] [place] Pain in right kneeStiffness of right knee, not elsewhere classifiedOth symptoms and signs involving the musculoskelet al systemUnspeci fied abnormalities of gait and mobilityOther abnormalities of gait and mobility Mar-1 8-[address] [facility], [address], [place], [address], [place]. tel:[phone] Referring Provider: Noel Reynolds Jr, [address], [place], [address]. tel:[phone] [facility] [address], [place], [place], [address], [place] tel:[phone] [place] Pain in right kneeStiffness of right knee, not elsewhere classifiedOth symptoms and signs involving the musculoskelet al systemUnspeci fied abnormalities of gait and mobilityOther abnormalities of gait and mobility Mar-1 5-201 9 Trevor Dos Santos. . Referring Provider: Noel Reynolds Jr, [address], [place], [address]. tel:[phone] [facility], [place], [place], [address], [place] tel:[phone] [place] Pain in right kneeStiffness of right knee, not elsewhere classifiedOth symptoms and signs involving the musculoskelet al systemUnspeci fied abnormalities of gait and mobilityOther abnormalities of gait and mobility Mar-1 3-201 9 Trevor Dos Santos. . Referring Provider: Noel Reynolds Jr, [address], [place], [address]. tel:[phone] [facility] [address], [place], [place], [address], [place] tel:[phone] [place] Pain in right kneeStiffness of right knee, not elsewhere classifiedOth symptoms and signs involving the musculoskelet al systemUnspeci fied abnormalities of gait and mobilityOther abnormalities of gait and mobility Mar-1 2-201 9 Threlkeld Yissel. . Referring Provider: Noel Reynolds Jr, [address], [place], [address]. tel:[phone] [facility], [address] [facility] [address] [facility] [address], [place], [place], [address], [place] tel:[phone] [place] Pain in right kneeStiffness of right knee, not elsewhere classifiedOth symptoms and signs involving the musculoskelet al systemUnspeci fied abnormalities of gait and mobilityOther abnormalities of gait and mobility Mar-0 8-201 9 Threlkeld Yissel. . Referring Provider: Noel Reynolds Jr, [address], [place], [address]. tel:[phone] [facility] [address], [place], [place], [address], [place] tel:[phone] [place] Pain in right kneeStiffness of right knee, not elsewhere classifiedOth symptoms and signs involving the musculoskelet al systemUnspeci fied abnormalities of gait and mobilityOther abnormalities of gait and mobility Mar-0 6-201 9 Krack Raya. . Referring Provider: Nole Reynolds Jr, [address], [place], [address]. tel:[phone] [facility], [place], [place], [address], [place] tel:[phone] [place] Pain in right kneeStiffness of right knee, not elsewhere classifiedOth symptoms and signs involving the musculoskelet al systemUnspeci fied abnormalities of gait and mobilityOther abnormalities of gait and mobility Mar-0 4-201 [address] [facility], [address], [place], [address], [place]. tel:[phone] Referring Provider: Noel Reynolds Jr, [address], [place], [address]. tel:[phone], [place], [place], [address], [place] tel:[phone] [place] Pain in right kneeStiffness of right knee, not elsewhere classifiedOth symptoms and signs involving the musculoskelet al systemUnspeci fied abnormalities of gait and mobilityOther abnormalities of gait and mobility Mar-0 1-201 9 Trevor Dos Santos. . Referring Provider: Noel Reynolds Jr, [address], [place], [address]. tel:[phone], [place], [place], [address], [place] tel:[phone] [place] Pain in right kneeStiffness of right knee, not elsewhere classifiedOth symptoms and signs involving the musculoskelet al systemUnspeci fied abnormalities of gait and mobilityOther abnormalities of gait and mobility Feb-2 8-201 [address] [facility], [address], [place], [address], [place]. tel:[phone] Referring Provider: Noel Reynolds Jr, [address], [place], [address]. tel:[phone], [place], [place], [address], [place] tel:[phone] [place] Pain in right kneeStiffness of right knee, not elsewhere classifiedOth symptoms and signs involving the musculoskelet al systemUnspeci fied abnormalities of gait and mobilityOther abnormalities of gait and mobility Feb-2 7-201 9 Trevor Dos Santos. . Referring Provider: Noel Reynolds Jr, [address], [place], [address]. tel:[phone] [facility], [place], [place], [address], [place] tel:[phone] [place] Pain in right kneeStiffness of right knee, not elsewhere classifiedOth symptoms and signs involving the musculoskelet al systemUnspeci fied abnormalities of gait and mobilityOther abnormalities of gait and mobility Feb-2 2-201 9 Trevor Dos Santos. . Referring Provider: Noel Reynolds Jr, [address], [place], [address]. tel:[phone] [facility] [address], [place], [place], [address], [place] tel:[phone] [place] Pain in right kneeStiffness of right knee, not elsewhere classifiedOth symptoms and signs involving the musculoskelet al systemUnspeci fied abnormalities of gait and mobilityOther abnormalities of gait and mobility Feb-2 0-201 9 Trevor Dos Santos. . Referring Provider: Noel Reynolds Jr, [address], [place], [address]. tel:[phone] [facility], [place], [place], [address], [place] tel:[phone] [place] Pain in right kneeStiffness of right knee, not elsewhere classifiedOth symptoms and signs involving the musculoskelet al systemUnspeci fied abnormalities of gait and mobilityOther abnormalities of gait and mobility Feb-1 8-[address] [facility], [address], [place], [address], [place]. tel:[phone] Referring Provider: Noel Reynolds Jr, [address], [place], [address]. tel:[phone] [facility], [place], [place], [address], [place] tel:[phone] [place] Pain in right kneeStiffness of right knee, not elsewhere classifiedOth symptoms and signs involving the musculoskelet al systemUnspeci fied abnormalities of gait and mobilityOther abnormalities of gait and mobility Feb-1 5-201 9 Trevor Dos Santos. . Referring Provider: Noel Reynolds Jr, [address], [place], [address]. tel:[phone] [facility], [address], [place], [place], [address], [place] tel:[phone] [place] Pain in right kneeStiffness of right knee, not elsewhere classifiedOth symptoms and signs involving the musculoskelet al systemUnspeci fied abnormalities of gait and mobilityOther abnormalities of gait and mobility Feb-1 4-201 9 Renard Dey. . Referring Provider: Noel Reynolds Jr, [address], [place], [address]. tel:[phone] [facility] [address], [place], [place], [address], [place] tel:[phone] [place] Pain in right kneeStiffness of right knee, not elsewhere classifiedWea knessOther abnormalities of gait and mobilityOth tear of medial meniscus, current injury, left knee, subs Apr-0 2-201 8 Nianne-mariehogeoffrey Lauren. . Referring Provider: [address], [place], [address]. tel:[phone] [facility], [place], [place], [address], [place] tel:[phone] [place] Pain in right kneeStiffness of right knee, not elsewhere classifiedWea knessOther abnormalities of gait and mobilityOth tear of medial meniscus, current injury, left knee, subs Mar-2 8-201 8 Niederhoffer Xin. . Referring Provider: [address], [place], [address]. tel:[phone] [facility], [address], [place], [place], [address], [place] tel:[phone] [place] Pain in right kneeStiffness of right knee, not elsewhere classifiedWea knessOther abnormalities of gait and mobilityOth tear of medial meniscus, current injury, left knee, subs May-04 10- 8 Niederhoffer Xin. . Referring Provider: [address], [place], [address]. tel:[phone] [facility], [address], [place], [place], [address], [place] tel:[phone] [place] Pain in right kneeStiffness of right knee, not elsewhere classifiedWea knessOther abnormalities of gait and mobilityOth tear of medial meniscus, current injury, left knee, subs Mar-2 1- 8 Niederhoffer Xin. . Referring Provider: [address], [place], [address]. tel:[phone] [facility], [place], [place], [address], [place] tel:[phone] [place] Pain in right kneeStiffness of right knee, not elsewhere classifiedWea knessOther abnormalities of gait and mobilityOth tear of medial meniscus, current injury, left knee, subs Mar- 9- 8 Niederhoffer Xin. . Referring Provider: [address], [place], [address]. tel:[phone] [facility], [place], [place], [address], [place] tel:[phone] [place] No Information May- 8 Niederhoffer Xin. . Referring Provider: [address], [place], [address]. tel:[phone] [facility], [place], [place], [address], [place] tel:[phone] [place] No Information 8 Niederhoffer Xin. . Referring Provider: [address], [place], [address]. tel:[phone] [facility], [place], [place], [address], [place] tel:[phone] [place] No Information Mar-0 6-201 8 Niederhoffer Xin. . Referring Provider: [address], [place], [address]. tel:[phone] [facility] [address], [place], [place], [address], tel:[phone] [place] No Information Mar-0 5-201 8 Niederhoffer Xin. . Referring Provider: [address], [place], [address]. tel:[phone] [facility] [address] [place], [place] [address], [place], [place], [address], tel:[phone] [place] No Information Mar-0 2-[address] [facility], [address], [place], [place], [facility], . tel:[phone] Referring Provider: [address], [place], [address]. tel:[phone] [facility] [address], [place], [place], [address], [place] tel:[phone] [place] Pain in right kneeStiffness of right knee, not elsewhere classifiedWea knessOther abnormalities of gait and mobilityOth tear of medial meniscus, current injury, left knee, subs Mar-0 1-201 8 Niederhoffer Xin. . Referring Provider: [address], [place], [address]. tel:[phone] Family History Family Member Type Diagnosis Age At Onset No Information Payers Payer name Insurance type Covered green party ID familia armaniyash(s) [employer] [facility] [id number] Social History Type Description Quantity Date Captured Comments Sex Male Smoking Status No Information Chief Complaint And Reason For Visit No Information Reason For Referral Reason For Referral No Information Plan Of Treatment Date Type Action Status Referral Ordered: Clinical Psychology (related to Depression) ordered Referral Ordered: Referrals: Specialist. Evaluate and Treat (related to Adjustment disorder with depressed mood) ordered Referral Ordered: Referrals: Specialist. Evaluate and Treat (related to F43.21) ordered Referral Ordered: Clinical Psychology (related to Depression) ordered Referral Ordered: Referrals: Specialist. Evaluate and Treat (related to F43.21) ordered History Of Present Illness Encounter Date Complaint History Of Prese nt Illness No Information Functional Status Date Functional Assessmen t No Information Instructions Date Instruction Additional Infor selam Giving encouragement to exercise Related to Overweight Dietary needs education Related to Overweight Assessments Type Assessment Date No Information Patient Care Teams Name Effective Dates (start - stop) Status Members No Information
--- OUTSIDE RECORDS SUMMARY | 2024-10-04 10:42 | XMS_ITS | Encounter Summary ---
Author Organization [facility] Healthcare Address [address] [place] [address] Care Team Providers Care Wrapper Operator Name Role Phone Mo Ford MD Primary Care Provi melisa Mo Ford MD Unavailable [phone] Claude Srinivasan DO Unavailable [phone] Satya Pyle DO Unavailable Reason for Visit * Reason Onset Date Comments YU Questions 10/02/2024 Encounter Details Date Type Department Care Team (Late Contact Info) Description 10/02/2024 Telephone [facility] Medical Group Family Medicine [address] [place] [address] Mo Ford MD [address] [facility] [address] [place] [address] YU Questions Social History Tobacco Use Types Packs/Day Years [...] on file 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 No Will patient be transferred to another inpatient facility (e.g. assisted, inpatient rehab, etc.)? Unsure The patient was not discharged at the time of the call. Patient will need to be contacted after discharge to complete remaining questions. Date Admitted: 09.27 Tentative Discharge Date: 10.02 Facility Admitted To: [facility] Date of YU Appointment: 8.7 Additional Comments: none Does message need to be routed? Yes-Action Needed documented in this encounter Plan of Treatment Not on file documented as of this encounter Goals Goal Patient Goal Type Associated Problems Recent Progress Patient-Stated? Author CCM Chronic Pain Care Plan Chronic Care Management No Maicol Pal RN Note: Problem: Chronic Pain Goals: 1. Minimize further functional decline 2. Maximize quality of life 3. Control pain Strategies: - Activity/exercise program recommendation - Conservative stepwise pain medicine strategy with multi-disciplinary approach - Recommend healthy lifestyle strategies and compensatory methods as needed Reduce the likelihood of falling Lifestyle No Maicol Pal RN Note: Below are four things you [...] on stairs Contact your local community or [facility] for information on exercise, fall prevention programs, or options for improving home safety. documented as of this encounter Visit Diagnoses Not on filedocumented in this encounter Care Teams Wrapper Operator Relationship Specialty Start Date End Date Mo Ford MD [address] [facility] [address] [place] [address] PCP - General Family Medicine 04/12/21 Mo Ford MD [address] [address] 04/09/21 Claude Srinivasan DO [address] [facility] [address] [place] [address] Consulting Physician Urology 01/04/22 Satya Pyle DO [address] [place] [address] Consulting Physician General Surgery 02/12/23 documented as of this encounter
--- OUTSIDE RECORDS SUMMARY | 2024-10-04 10:42 | XMS_ITS | Clinical Summary ---
Author Organization [facility] Address [address] [place] [address] Phone Care Team Providers Care Band Cutter Name Role Phone Mo Ford MD Primary Care Provider Allergies Active Allergy Reactions Criticality Noted Date Comments Quetiapine Confusion Low 02/21/2023 Zolpidem Confusion Low 02/21/2023 Medications DULoxetine (CYMBALTA) 60 mg Capsule, Delayed Release(E.C.) Take 1 Capsule (60 mg) by mouth daily. 30 Capsule 5 10:25 AM CDT 10/03/19 25 025 Active hydrOXYzine HCL (ATARAX) 50 mg tablet Take 1 Tablet (50 mg) by mouth every 6 hours as needed for Anxiety or Itching. 45 Tablet 5 10:25 AM CDT 10/03/19 25 Active OLANZapine (ZyPREXA) 10 mg tablet Take 1 Tablet (10 mg) by mouth daily at bedtime. 30 Tablet 5 10:25 AM CDT 10/03/19 25 Active traZODone (DESYREL) 100 mg tablet Take 1 Tablet (100 mg) by mouth nightly as needed for Insomnia. 25 Tablet 5 10:25 AM CDT 10/03/19 25 Active ARIPiprazole (ABILIFY) 5 mg tabletIndicati ons:bipolar disorder Starting on 09/26/23, Take 1 Tablet (5 mg) by mouth daily. 30 Tablet 4 2:48 PM CDT 09/26/19 24 025 Discontinued(Al ternate therapy prescribed) prazosin (MINIPRESS) 2 mg capsuleIndicat ions:Chronic PTSD with Trauma Nightmares Take 1 Capsule (2 mg) by mouth daily at bedtime. 30 Capsule 4 2:48 PM CDT 09/25/19 24 025 Discontinued sertraline (ZOLOFT) 50 mg tabletIndicati ons:depression Starting 09/26/23, Take 1 Tablet (50 mg) by mouth daily. 30 Tablet 4 2:48 PM CDT 09/26/19 24 025 Discontinued(Al ternate therapy prescribed) ARIPiprazole (ABILIFY) 15 mg tablet Take 0.5 Tablets by mouth daily. 08/31/19 25 025 Discontinued sertraline (ZOLOFT) 100 mg tablet Take 150 mg by mouth daily. 08/31/19 25 025 Discontinued traZODone (DESYREL) 50 mg tablet Take 50 mg by mouth nightly as needed for Insomnia. 08/02/19 25 025 Discontinued Active Problems Problem Noted Date Diagnosed Date Opioid use disorder 09/30/2024 Bipolar disorder, current episode depressed, sev ere 09/23/2023 Cocaine abuse 09/23/2023 Anxiety disorder 09/23/2023 PTSD (post-traumatic stress disorder) 09/23/2023 ADHD 09/23/2023 Encounters Date Type Department Care Team Description 09/30/2024 External Device Data ST[facility] ABSTRACTION Provider, Abstract 09/30/2024 External Device Data ST[facility] ABSTRACTION Provider, Abstract 09/30/2024 External Device Data ST[facility] ABSTRACTION Provider, Abstract 09/29/2024 Plan of Care Documentation [facility] [address] [place] [address] 09/27/2024 5:48 PM CDT - 10/02/2024 10:55 AM CDT Hospital Encounter [facility] [address] [place] [address] Vazquez Coleman MD Yayah, Faisal M, MD Gupta, Rahul, MD Sood, MD Anthony Lyons, MD Jeane Sloan, Adrian Garrido MD Bipolar disorder, current episode depressed, severe (CMS/HCC) Discharge Disposition: Home or Self Care 09/27/2024 Patient Outreach [facility] [address] [place] [address] Saundra Coreas Referral (PAR team.) 09/27/2024 Travel 09/17/2024 External Device Data [facility] ABSTRACTION Provider, Abstract 09/17/2024 External Device Data [facility] ABSTRACTION Provider, Abstract 09/02/2024 External Device Data [facility] ABSTRACTION Provider, Abstract 08/20/2024 External Device Data [facility] ABSTRACTION Provider, Abstract 07/29/2024 External Device Data ST[facility] ABSTRACTION Provider, Abstract 07/23/2024 External Device Data ST[facility] ABSTRACTION Provider, Abstract 07/22/2024 External Device Data ST[facility] ABSTRACTION Provider, Abstract from Last 3 Months Social History Tobacco Use Types Packs/Day Years Used Date Smoking Tobacco: Former Smokeless Tobacco: Never Alcohol Use Standard Drinks/Week Comments Yes 0 (1 standard drink = 0.6 oz pure alcohol) Pt reports 8-10 drinks per year Sex and Gender Information Value Date Recorded Sex Assigned at Not on file Legal Sex Male 10:25 PM CDT Gender Identity Not on file Sexual Orientation Not on file Last Filed Vital Signs Vital Sign Reading Time Taken Comments Blood Pressure 106/69 10/02/2024 7:00 AM CDT Pulse 79 10/01/2024 7:20 PM CDT Temperature 36.6 C (97.8 F) 10/02/2024 7:00 AM CDT Respiratory Rate 16 10/02/2024 7:00 AM CDT Oxygen Saturation 97% 10/02/2024 7:00 AM CDT Inhaled Oxygen Concentration - - Weight 86.2 kg (190 lb) 09/29/2024 1:48 PM CDT Height 180.3 cm (5' 11) 09/29/2024 1:48 PM CDT Body Mass Index 26.5 09/29/2024 1:48 PM CDT Plan of Treatment Health Maintenance Due Date Last Done Comments HPV VACCINES (1 - Male 3-dos e series) 12/14/1995 DTAP/TDAP/TD VACCINES (1 - Tdap) 12/14/1999 HEPATITIS B VACCINES (1 of 3 - 19+ 3-dose series) 12/14/1999 COVID-19 Vaccine (3 - 2023-2 5 season) 2023 08/09/2020, 07/19/2020 INFLUENZA VACCINE (#1) 2024 01/16/2023, 2021 Pre-Diabetes and Diabetes Screening 09/30/202709/29, 09/22/2023 Abdominal Aortic Aneurysm (A AA) Screening Completed 09/18/2022, 02/16/2022, 01/03/2022 Medical Devices Implanted Type Area Cnc Machinist 2Nd Shift Device Identifier Shelf Expiration Date Model / Serial / Lot Stent Uret Dbl Pgtl Slcn Blk [id number] - [id number] Implanted:Qty: 1 on 12/29/2020 by Markell Black MD at [facility] Stent Right: Ureter COOK- UROLOGY 07/22/2023 [id number] / / [id number] Procedures Procedure Name Priority Date/Time Associated Diagnosis Comments EXTRA TUBE (URINE UNGER) Routine 09/29/2024 3:38 PM CDT URINALYSIS W/REFLEX MICROSCOPIC Routine 09/29/2024 3:38 PM CDT DRUG SCREEN, URINE Routine 09/29/2024 3: 38 PM CDT LIPID PANEL Routine 09/29/2024 3:37 PM CDT COMPREHENSIVE METABOLIC PANEL Routine 09/29/2024 3:37 PM CDT CBC WITH DIFFERENTIAL Routine 09/29/2024 3:37 PM CDT ETHANOL LEVEL Routine 09/29/2024 3:37 PM CDT HEMOGLOBIN A1C Routine 09/29/2024 3:37 PM CDT TSH Routine 09/29/2024 3:37 PM CDT from Last 3 Months Results * EXTRA TUBE (URINE UNGER) (09/29/2024 3:38 PM CDT) Urine URINE SPECIMEN OBTAINED BY CLEAN CATCH PROCEDURE / Unknown Collection / Unknown 09/29/2024 3:38 PM CDT 09/29/2024 6:27 PM CDT us Serena Esposito MD URINE ORDERABLES Final Result [facility] CLIA# [id number] [place] [address] * (ABNORMAL) DRUG SCREEN, URINE (09/29/2024 3:38 PM CDT) [facility] AMPHETAMINE QUAL, URINE Negative Negative 09/29/2024 7:28 PM CDT [facility] BARBITURATE QUAL, URINE Negative Negative 09/29/2024 7:28 PM CDT [facility] BENZODIAZEPINE QUAL, URINE Negative Negative 09/29/2024 7:28 PM CDT [facility] COCAINE QUAL URINE Presumptive Positive(A) Negative 09/29/2024 7:28 PM CDT [facility] OPIATE QUAL, URINE Negative Negative 09/29/2024 7:28 PM CDT [facility] CANNABINOIDS QUAL, URINE Negative Negative 09/29/2024 7:28 PM CDT [facility] PCP QUAL, URINE Negative Negative 7:28 PM CDT [facility] OXYCODONE QUAL, URINE Negative Negative 09/29/2024 7:28 PM CDT [facility] METHADONE QUAL, URINE Negative Negative 09/29/2024 7:28 PM CDT [facility] FENTANYL QUAL, URINE Presumptive Positive(A) Negative 09/29/2024 7:28 PM CDT [facility] CREATININE, URINE 103.0 40.0 - 278.0 mg/dL 09/29/2024 7:28 PM CDT [facility] Comment:Reference Range vari es with fluid intake and diet. Urine URINE SPECIMEN OBTAINED BY CLEAN CATCH PROCEDURE / Unknown Collection / Unknown 09/29/2024 3:38 PM CDT 09/29/2024 6:27 PM CDT Narrative [facility] - 09/29/2024 7:28 PM CDT This test is a qualitative screen. The presumptive positive results should not be used for legal purposes. If confirmation of results is desired, the lab must be contacted without delay. Drug Ref. Range Screening Threshold Amphetamines Negative 500 ng/mL Barbiturates Negative 200 ng/mL Benzodiazepines Negative 100 ng/mL Cannabinoids Negative 50 ng/mL Cocaine Negative 150 ng/mL Methadone Negative 300 ng/mL Opiates Negative 300 ng/mL Oxycodone Negative 100 ng/mL Phencyclidine Negative 25 ng/mL Fentanyl Negative 5 ng/mL Serena Esposito MD URINE ORDERABLES Final Result [facility] CLIA# [id number] [address] [place] [address] * URINALYSIS WITH REFLEX MICROSCOPIC (09/29/2024 3:38 PM CDT) COLOR UA Yellow Pale to Dark Yellow 09/29/2024 6:51 PM CDT [facility] CLARITY UA Clear Clear 09/29/2024 6:51 PM CDT [facility] SPECIFIC GRAVITY UA 1.018 1.003 - 1.035 09/29/2024 6:51 PM CDT [facility] PH UA 5.0 5.0 - 8.0 09/29/2024 6:51 PM CDT [facility] LEUKOCYTE ESTERASE UA Negative Negative 09/29/2024 6:51 PM CDT [facility] NITRITE UA Negative Negative 09/29/2024 6:51 PM CDT [facility] PROTEIN UA Negative Negative 09/29/2024 6:51 PM CDT [facility] GLUCOSE UA Negative Negative 09/29/2024 6:51 PM CDT [facility] KETONES UA Negative Negative 09/29/2024 6:51 PM CDT [facility] UROBILINOGEN UA Normal <2.0 mg/dL 6:51 PM CDT [facility] BILIRUBIN UA Negative Negative 09/29/2024 6:51 PM CDT [facility] BLOOD UA Negative Negative 09/29/2024 6:51 PM CDT [facility] Urine URINE SPECIMEN OBTAINED BY CLEAN CATCH PROCEDURE / Unknown Collection / Unknown 09/29/2024 3:38 PM CDT 09/29/2024 6:27 PM CDT Serena Esposito MD URINE ORDERABLES Final Result [facility] CLIA# [id number] [place] [address] * (ABNORMAL) CBC WITH DIFFERENTIAL (09/29/2024 3:37 PM CDT) WBC 6.0 4.0 - 9.8 K/uL 09/29/2024 6:39 PM CDT [facility] RBC 3.86(L) 4.50 - 5.40 M/uL 09/29/2024 6:39 PM CDT [facility] HEMOGLOBIN 12.6(L) 13.6 - 16.5 g/dL 09/29/2024 6:39 PM CDT [facility] HEMATOCRIT 37.4(L) 40.0 - 48.0 % 09/29/2024 6:39 PM CDT [facility] MCV 96.9 82.0 - 99.0 fL 09/29/2024 6:39 PM CDT [facility] MCH 32.6 27.2 - 32.6 pg 09/29/2024 6:39 PM CDT [facility] MCHC 33.7 31.5 - 35.5 g/dL 09/29/2024 6:39 PM CDT [facility] RDW 13.0 11.5 - 14.5 % 09/29/2024 6:39 PM CDT [facility] RDW-STDEV 46.5 37.1 - 48.7 fL 09/29/2024 6:39 PM CDT [facility] PLATELETS 241 140 - 350 K/uL 09/29/2024 6:39 PM CDT [facility] MPV 10.7 9.3 - 12.4 fL 09/29/2024 6:39 PM CDT [facility] NEUTROPHILS 63 % 09/29/2024 6:39 PM CDT [facility] LYMPHOCYTES 26 % 09/29/2024 6:39 PM CDT [facility] MONOCYTES 8 % 09/29/2024 6:39 PM CDT [facility] EOSINOPHILS 3 % 09/29/2024 6:39 PM CDT [facility] BASOPHILS 0 % 09/29/2024 6:39 PM CDT [facility] IMMATURE GRANULOCYTES 0 % 09/29/2024 6:39 PM CDT [facility] NEUTROPHIL ABSOLUTE 3.77 1.90 - 7.00 K/uL 09/29/2024 6:39 PM CDT [facility] LYMPHOCYTE ABSOLUTE 1.55 0.70 - 4.50 K/uL 09/29/2024 6:39 PM CDT [facility] MONOCYTE ABSOLUTE 0.46 0.10 - 1.30 K/uL 09/29/2024 6:39 PM CDT [facility] EOSINOPHIL ABSOLUTE 0.18 0.00 - 0.70 K/uL 09/29/2024 6:39 PM CDT [facility] BASOPHILS ABSOLUTE 0.01 0.00 - 0.20 K/uL 09/29/2024 6:39 PM CDT [facility] IMMATURE GRANULOCYTES ABSOLUTE 0.02 0.00 - 0.03 K/uL 09/29/2024 6:39 PM CDT [facility] Blood Venipuncture / Unknown 09/29/2024 3:37 PM CDT 09/29/2024 6:37 PM CDT us Serena Esposito MD HEMATOLOGY ORDERABLES Final Resu lt [facility] CLIA# [id number] [place] [address] * TSH (09/29/2024 3:37 PM CDT) [facility] TSH 1.11 0.27 - 4.20 uIU/mL 09/29/2024 7:13 PM CDT [facility] Blood Venipuncture / Unknown 09/29/2024 3:37 PM CDT 09/29/2024 6:36 PM CDT Serena Esposito MD CHEMISTRY ORDERABLES Final Resul t [facility] CLIA# [id number] [place] [address] * HEMOGLOBIN A1C (09/29/2024 3:37 PM CDT) [facility] HEMOGLOBIN A1C 5.6 <=5.6 % 09/29/2024 6:54 PM CDT [facility] [email or web address] [facility] EST. AVG GLUCOSE, A1C 114 mg/dL 09/29/2024 6:54 PM CDT [facility] [email or web address] [facility] Blood Venipuncture / Unknown 09/29/2024 3:37 PM CDT 09/29/2024 6:36 PM CDT Narrative [facility] [email or web address] [facility] - 09/29/2024 6:54 PM CDT HGB A1C INTERPRETATION NORMAL: <5.7% PRE-DIABETES: 5.7 - 6.4% DIABETES: 6.5% OR GREATER Serena Esposito MD CHEMISTRY ORDERABLES Final Resul t [facility] CLIA# [id number] [place] [address] * ETHANOL LEVEL (09/29/2024 3:37 PM CDT) [facility] ETHANOL <10.10 No Ref Range Estab mg/dL 09/29/2024 7:13 PM CDT [facility] ETHANOL % <0.01 %w/v 09/29/2024 7:13 PM CDT [facility] Blood Venipuncture / Unknown 09/29/2024 3:37 PM CDT 09/29/2024 6:36 PM CDT us Serena Esposito MD CHEMISTRY ORDERABLES Final Resul t [facility] CLIA# [id number] [place] [address] * (ABNORMAL) LIPID PANEL (09/29/2024 3:37 PM CDT) CHOLESTEROL 112 <200 mg/dL 09/29/2024 7:13 PM CDT [facility] TRIGLYCERIDE 88 <150 mg/dL 09/29/2024 7:13 PM CDT [facility] HDL 29(L) 40 - 59 mg/dL 09/29/2024 7:13 PM CDT [facility] LDL CALCULATED 65 <100 mg/dL 09/29/2024 7:13 PM CDT [facility] NON-HDL CHOLESTEROL 83 <130 mg/dL 09/29/2024 7:13 PM CDT [facility] Blood Venipuncture / Unknown 09/29/2024 3:37 PM CDT 09/29/2024 6:36 PM CDT Narrative [facility] - 09/29/2024 7:13 PM CDT TOTAL CHOLESTEROL mg/dL Desirable <200 Borderline high 200-239 High >=240 TRIGLYCERIDES mg/dL Normal <150 Borderline high 150-199 High 200-499 Very high >=500 HDL CHOLESTEROL mg/dL Low <40 Normal 40-59 Desirable >=60 NON HDL CHOLESTEROL mg/dL Optimal <130 Near Optimal 130-159 Borderline High 160-189 Very High >=190 CALCULATED LDL mg/dL LDL <70, OPTIMAL if have Atherosclerotic cardiovascular disease (ASCVD) or intermediate or higher (>7.5%) 10 year risk of ASCVD including most adults with diabetes. LDL <100, Optimal in adult patients with low (<7.5%) 10 year ASCVD risk LDL 100-160, Suboptimal LDL >160, High LDL >190, Very high LDL calculated using the Friedewald equation. ATPIII Guidelines Reference Ranges for Lipid Panels (NCEP/AMA) . Serena Esposito MD CHEMISTRY ORDERABLES Final Resul t [facility] CLIA# [id number] [place] [address] * (ABNORMAL) COMPREHENSIVE METABOLIC PANEL (09/29/2024 3:37 PM CDT) SODIUM 143 136 - 145 mmol/L 09/29/2024 7:13 PM CDT [facility] POTASSIUM 4.0 3.4 - 5.1 mmol/L 09/29/2024 7:13 PM CDT [facility] CHLORIDE 109(H) 98 - 107 mmol/L 09/29/2024 7:13 PM CDT [facility] CO2 20(L) 22 - 29 mmol/L 09/29/2024 7:13 PM CDT [facility] CALCIUM 8.7 8.6 - 10.4 mg/dL 09/29/2024 7:13 PM CDT [facility] BUN 17 6 - 20 mg/dL 09/29/2024 7:13 PM CDT [facility] CREATININE 0.76 0.67 - 1.17 mg/dL 09/29/2024 7:13 PM CDT [facility] GLUCOSE 115(H) 74 - 99 mg/dL 09/29/2024 7:13 PM CDT [facility] TOTAL PROTEIN 5.8(L) 6.3 - 8.7 g/dL 09/29/2024 7:13 PM CDT [facility] ALBUMIN 3.6 3.5 - 5.2 g/dL 09/29/2024 7:13 PM CDT [facility] BILIRUBIN TOTAL <0.2 0.0 - 1.2 mg/dL 09/29/2024 7:13 PM CDT [facility] ALKALINE PHOSPHATASE 55 40 - 150 U/L 09/29/2024 7:13 PM CDT [facility] AST 19 0 - 41 U/L 09/29/2024 7:13 PM CDT [facility] ALT 17 0 - 41 U/L 09/29/2024 7:13 PM CDT [facility] GFR >60 >=60 mL/min/1.7 3 sq meter 09/29/2024 7:13 PM T [facility] Comment:eGFR calculated with 2020 CKD-EPI equation. Vegetarian diet, extremely high or low muscle mass, and may affect results. Cystatin C with Glomerular Filtration Rate is a suitable alternative for these patients. ANION GAP 14 8 - 16 mmol/L 09/29/2024 7:13 PM CDT [facility] Blood Venipuncture / Unknown 09/29/2024 3:37 PM CDT 09/29/2024 6:36 PM CDT Serena Esposito MD CHEMISTRY ORDERABLES Final Resul t [facility] CLIA# [id number] [place] [address] from Last 3 Months Insurance [employer] (INTERNAL) [employer] RX [facility]NAG[employer] [facility] (INTERNAL) [employer] [place] Advance Directives For more information, please contact: [phone] * Full Code (Latest Code Status on File) Date Activated Date Inactivated Comments 09/29/2024 2:08 PM 10/02/2024 1:00 PM * Full Code Date Activated Date Inactivated Comments 09/22/2023 10:36 PM 09/25/2023 6:09 PM * Full Code Date Activated Date Inactivated Comments 12/28/2020 2:32 PM 12/29/2020 7:36 PM Care Teams Band Cutter Relationship Specialty Start Date End Date Mo Ford MD PCP - General 09/26/17
--- OUTSIDE RECORDS SUMMARY | 2024-10-04 10:42 | XMS_ITS | Referral Summary ---
Author Organization [facility] Address [address] [place] [address] Care Team Providers Care Oracle Ebs Architect Name Role Phone Mo Ford MD Primary Care Provi melisa Mo Ford MD Unavailable [phone] Claude Srinivasan DO Unavailable Satya Pyle DO Unavailable [phone] Encounters Date Type Department Care Team Description 10/02/2024 Telephone [facility] Family Medicine [address] [facility] [address] [facility] [address] [place] [address] Mo Ford MD YU Questions 07/08/2024 8:07 PM CDT - 07/08/2024 10:49 PM CDT Emergency [facility] [address] [place] [id number] Discharge Disposition: Left without being seen from Last 3 Months Allergies Active Allergy Reactions Criticality Noted Date [...] 02/23/2023 Assessment & Plan (02/23/2023 10:23 PM PANTRY STEWARD/STEWARDESS): Images from the original note were not [...] 05/18/2022 Assessment & Plan (02/23/2023 10:19 PM PANTRY STEWARD/STEWARDESS): colonoscopy by Dr. Goodwin June 2021 with [...] 05/05/2022 Assessment & Plan (02/23/2023 10:34 PM PANTRY STEWARD/STEWARDESS): History of gastroparesis and follows with Dr. [...] (11/17/2021): Added automatically from request for surgery [id number] Chronic right shoulder pain 05/06/2020 Assessment & [...] basis. Assessment & Plan (05/06/2020 3:35 PM PANTRY STEWARD/STEWARDESS): Patient has chronic right shoulder pain with [...] right brachial plexus and EMG/NCS evaluation at [facility] for better characterization and see him back [...] Overview (03/08/2020): BMI Follow-up includes: education provided. Immunizations Immunization Administration Dates Next Due Hep A, 3 Dose 03/23/1999 Influenza, Quadrivalent, Spl it, Preservative Free, Intramuscular 01/16/2023,01/04/2022 Influenza, Unspecified 10/01/2023(Deferr ed: Patient Refused),04/26/2022(Deferred: Patient Refused),12/03/2020(Deferred: Patient Refused),12/17/2018(Deferred: Patient Refused) Social History Tobacco Use Types Packs/Day Years [...] on file Legal Sex Male 6:02 PM PANTRY STEWARD/STEWARDESS Gender Identity Not on file Sexual Orientation [...] 10/31/2023 11:20 PM CDT Plan of Treatment Not on file Goals Goal Patient Goal Type Associated Problems [...] needed Reduce the likelihood of falling Lifestyle Maicol Naranjo RN Note: Below are four things you [...] on stairs Contact your local community or [facility] for information on exercise, fall prevention programs, or options for improving home safety. Medical Devices Implanted Type Area Channel Opener Device Identifier Shelf Expiration Date Model / Serial / Lot Other - See Comments Other - see comments N/A: Knee Hardware Right: Knee Description:RIGHT KNEE Screw Right: Knee Joint Right: Knee Lynx N/A: Stomach [employer] [id number] Linx Gastrointestinal 15 Bead 1.5 Adriana System Implant Gerd - [id number] Implanted:Qty: 1 on 04/12/2021 by Satya Pyle DO at [facility] [employer] [id number] 06/11/2024 [id number] / / [id number] [employer]/C R Bard Mesh Surg 3dmax [id number] Left Mid Large Inguinal Hernia [id number] - [id number] Implanted:Qty: 1 on 06/07/2022 by Satya Pyle DO at [facility] Left: Inguinal [employer]/C R Bard [id number] 09/29/2026 [id number] / / [id number] [employer]/C R Bard Mesh Surg 3dmax Right Mid Large Inguinal Hernia [id number] - [id number] Implanted:Qty: 1 on 06/07/2022 by Satya Pyle DO at [facility] Left: Inguinal [employer]/C R Bard [id number] 11/30/2026 [id number] / / [id number] Procedures Procedure Name Priority Date/Time Associated Diagnosis Comments HEPATITIS C ANTIBODY Routine 11/01/2023 8:17 PM CDT COLONOSCOPY 01/19/2023 7:03 AM PANTRY STEWARD/STEWARDESS from Last 3 Months or Most Recently [...] LAB MICROBIOLOGY - GENERAL ORDERABLES Final Result [facility] Department [place] [address] * COLONOSCOPY (01/19/2023 7:03 AM PANTRY STEWARD/STEWARDESS) Anatomical Region Laterality Modality Other Narrative Procedure Note Marty Burris MD - 01/19/2023 7:03 AM CST [facility] GI ENDOSCOPY Patient Name: Francisco Javier Bernardo Procedure Date: 01/19/2023 7:03 AM Date of : 1980 Admit Type: Outpatient Age: 42 Gender: Male Attending MD: Marty Burris M.D. Room: [facility] ENDOSCOPY ROOM 06 Note Status: Finalized Procedure: [...] The scope was passed under direct vision.The [id number] colonoscope was introduced through theanus and advanced [...] On: 01/19/2023 7:03 AM Recognized by the [place] [employer] for promoting quality in endoscopy Marty Burris MD ENDOSCOPY PROCEDURES Final Resul t from Last 3 Months or Most Recently Relevant to Health Maintenance Insurance [facility] Advance Directives For more information, please contact: [phone] * Full Code (Latest Code Status on File) Date Activated Date Inactivated Comments 10/31/2023 11:23 PM 11/06/2023 1:27 PM * Full Code Date Activated Date Inactivated Comments 05/05/2022 1:19 PM 05/06/2022 5:15 PM * Full Code Date Activated Date Inactivated Comments 01/03/2022 3:55 PM 01/04/2022 7:23 PM Care Teams Oracle Ebs Architect Relationship Specialty Start Date End Date Mo Ford MD [address] [address] PCP - General Family Medicine 04/12/21 Mo Ford MD [address] [address] 04/09/21 Claude Srinivasan DO [address] [address] Consulting Physician Urology 01/04/22 Satya Pyle DO [address] [place] [id number] Consulting Physician General Surgery 02/12/23
--- OUTSIDE RECORDS SUMMARY | 2024-10-04 10:42 | XMS_ITS | Encounter Summary ---
Author Organization [facility] Facility Care Team Providers Care Border Machine Operator Name Role Phone Mo Ford MD Primary Care Provi melisa Unknown, Notinfile Primary Care Provider Unavail able Mo Ford MD Primary Care Provi melisa Mo Ford MD Unavailable + [phone] Claude Srinivasan DO Unavailable [phone] Satya Pyle DO Unavailable [phone] Dallas GlassW Unavailable [phone] Eugenia Shin LPN Unavailable [phone] Encounter Details Date Type Department Care Team (Latest Contact Info) Description 08/04/2017 Orders Only [facility] CLINCONV Provider, MD Yaya [address] [place] [id number] Social History Tobacco Use Types Packs/Day Years Used Date Smoking Tobacco: Never Assessed Sex and Gender Information Value Date Recorded Sex Assigned at Not on file Legal Sex Male 6:02 PM CRACKER OFF Gender Identity Not on file Sexual Orientation Not on file documented as of this encounter Plan of Treatment Not on file documented as of this encounter Procedures Procedure Name Priority Date/Time Associated Diagnosis Comments SCAN - LABS 08/04/2017 12:00 AM CDT documented in this encounter Results * SCAN - LABS (08/04/2017 12:00 AM CDT) Narrative 08/04/2017 12:00 AM CDT Ordered by an unspecified provider. us Historical Provider Final Res ult documented in this encounter Visit Diagnoses Not on filedocumented in this encounter Care Teams Border Machine Operator Relationship Specialty Start Date End Date Mo Ford MD [address] [facility] [address] [place] [address] PCP - General 04/17/16 04/08/21 Unknown, Notinfile PCP - General 04/09/21 04/11/21 Mo Ford MD [address] [facility] [address] [place] [address] PCP - General Family Medicine 04/12/21 Mo Ford MD [address] [facility] [address] [place] [address] 04/09/21 Claude Srinivasan DO Consulting Physician Urology 01/04/22 Satya Pyle DO [address] [place] [phone] Consulting Physician General Surgery 02/12/23 Dallas Glass LCSW [address] [place] [address] [address] [place] [address] Financial Consultant 10/01/23 10/31/23 Eugenia Shin LPN [address] [place] [address] Bull Ladle Tender 11/07/23 11/08/23 documented as of this encounter
--- OUTSIDE RECORDS SUMMARY | 2024-10-04 10:42 | XMS_ITS | Clinical Summary ---
Author Organization [facility] Address [facility] [place] [address] Care Team Providers Care Dredge Pipe Installer Name Role Phone Mo Ford MD Primary Care Provider Allergies Active Allergy Reactions Criticality Noted Date Comments Quetiapine Other (see comment),Hallucinations Medium 06/13/2018 Makes very goofy nightmares Tape Rash Medium 10/16/2022 SURGICAL GLUE Zolpidem Other (see comment),Hallucinations Medium 06/13/2018 Makes goofy nightmares Medications clonazePAM (KLONOPIN) 1 MG tablet Take 1 tablet (1 mg total) by mouth as needed. 11/30/2022 Active allopurinol (ZYLOPRIM) 100 MG tablet Take 1 tablet (100 mg total) by mouth daily. Active amphetamine-dex troamphetamine (ADDERALL) 20 MG tablet Take 1.5 tablets (30 mg total) by mouth 2 (two) times daily. Active fish oil (OMEGA-3 FATTY ACID) 1000 MG Cap capsule Take 1 capsule (1,000 mg total) by mouth 2 (two) times daily. Active cariprazine (VRAYLAR) 3 MG capsule Take 1 capsule (3 mg total) by mouth daily. Active FLUoxetine (PROZAC) 40 MG capsule Take 1 capsule (40 mg total) by mouth daily. Active MARIJUANA TINCTURE Take 2-25 mg by mouth. Active Encounters Date Type Department Care Team Description 07/13/2024 11:47 AM CDT - 07/14/2024 1:24 PM CDT Emergency [facility] [place] [address] Jose Raul Donohue MD Curtis, MD Bassem Welsh Jason P, MD,PHD Emile Hubbard MD Suicidal Ideation; Substance Abuse (Crack cocaine) Discharge [facility]position: [facility] 07/13/2024 Travel from Last 3 Months Social History Tobacco Use Types Packs/Day Years Used Date Smoking Tobacco: Never Assessed Tobacco Cessation:Counseling Given: Not Answered Sex and Gender Information Value Date Recorded Sex Assigned at Male 07/13/2024 12:39 PM CDT Legal Sex Male 6:43 PM CDT Gender Identity Not on file Sexual Orientation Not on file Last Filed Vital Signs Vital Sign Reading Time Taken Comments Blood Pressure 103/62 07/14/2024 10:00 AM CDT Pulse 76 07/14/2024 10:00 AM CDT Temperature 36.8 C (98.3 F) 07/14/2024 12:29 AM CDT Respiratory Rate 16 07/14/2024 10:00 AM CDT Oxygen Saturation 98% 07/14/2024 10:00 AM CDT Inhaled Oxygen Concentration - - Weight 93.9 kg (207 lb) 07/13/2024 11:38 AM CDT Height 177.8 cm (5' 10) 07/13/2024 11:38 AM CDT Body Mass Index 29.7 07/13/2024 11:38 AM CDT Plan of Treatment Health Maintenance Due Date Last Done Comments Annual Physical 12/14/1983 Hepatitis C 1998 DTaP, Tdap and Td Vaccines ( 1 - Tdap) 12/14/1999 Hepatitis B Vaccines (1 of 3 - 19+ 3-dose series) 12/14/1999 HPV Vaccines (1 - 3-dose SCD M series) 12/14/2007 COVID-19 Vaccine (3 - 2023-2 5 season) 2023 08/09/2020, 07/19/2020 EGD-Camilo's Surveillance Discontinued 02/21/2023 Meningococcal B Vaccine Aged Out No l onger eligible based on patient's age to complete this topic Meningococcal Vaccine Aged Out No marianela kane eligible based on patient's age to complete this topic Pneumococcal Vaccine: Pediatrics (0 to 5 Years) and At-Risk Patients (6 to 49 Years) Aged Out No longer eligible based on patient's age to complete this topic RSV Immunizations Under 20 Months Aged Out No longer eligible based on patient's age to complete this topic Medical Devices Implanted Type Area Accounts Payable Lead Device Identifier Shelf Expiration Date Model / Serial / Lot Knee Components, Right Knee Components Procedures Procedure Name Priority Date/Time Associated Diagnosis Comments ECG 12-LEAD Routine 07/13/2024 12:18 PM CDT RESPIRATORY PCR PANEL 2 STAT 07/13/2024 12:06 PM CDT DRUG SCREEN RAPID STAT 07/13/2024 12: 06 PM CDT HC URINALYSIS AUTO W/O MICRO STAT 07/13/2024 12:06 PM CDT MAGNESIUM STAT 07/13/2024 12:06 PM CDT TSH W/REFLEX STAT 07/13/2024 12:06 PM CDT SALICYLATE STAT 07/13/2024 12:06 PM CDT ACETAMINOPHEN STAT 07/13/2024 12:06 PM CDT ETHANOL STAT 07/13/2024 12:06 PM CDT TROPONIN, QUANT STAT 07/13/2024 12:06 PM CDT COMPREHENSIVE METABOLIC PANEL STAT 07/13/2024 12:06 PM CDT CBC W/DIFF AUTOMATED STAT 07/13/2024 12:06 PM CDT EGD Routine 02/21/2023 7:30 AM APIARIST from Last 3 Months or Most Recently Relevant to Health Maintenance Results * ECG 12 lead (07/13/2024 12:18 PM CDT) 07/13/2024 12:1 8 PM CDT Narrative HS-ST FERRARIMary Anne [facility] ([facility] RAD - 07/13/2024 2:23 PM CDT [address] Test Date: 2024-07-13 Pat Name: FRANCISCO JAVIER JUAREZ Department: 41 Room: Gender: Male General Cleaner: [id number] : 1980 Requested By: LISA WATSON Order Number: [id number] Reading AMBER Cueto Measurements Intervals [place] Rate: 70 P: 11 [place]: 144 QRS: 47 QRSD: 105 T: 64 QT: 401 QTc: 435 Interpretive Statements SINUS RHYTHM No previous ECG available for comparison Procedure Note August Cueto MD - 07/13/[address] Test Date: 2024-07-13 Pat Name: FRANCISCO JAVIER JUAREZ Department: 41 Room: Gender: Male General Cleaner: [id number] : 1980 Requested By: LISA WATSON Order Number: [id number] Reading AMBER Cueto Measurements Intervals [place] Rate: 70 P: 11 [place]: 144 QRS: 47 QRSD: 105 T: 64 QT: 401 QTc: 435 Interpretive Statements SINUS RHYTHM No previous ECG available for comparison us Lisa Watson MODULAR SET CREW MEMBER ECG ORDERABLES Final Resul t [facility] ([facility]) RAD * RESPIRATORY PCR PANEL 2 (07/13/2024 12:06 PM CDT) ADENOVIRUS PCR (RESP) NOT DETECTED NOT DETECTED 07/13/2024 2:21 PM CDT [facility] CORONAVIRUS 229E PCR (RESP) NOT DETECTED NOT DETECTED 07/13/2024 2:21 PM CDT [facility] CORONAVIRUS HKU1 PCR (RESP) NOT DETECTED NOT DETECTED 07/13/2024 2:21 PM CDT [facility] CORONAVIRUS NL63 PCR (RESP) NOT DETECTED NOT DETECTED 07/13/2024 2:21 PM CDT [facility] CORONAVIRUS OC43 PCR (RESP) NOT DETECTED NOT DETECTED 07/13/2024 2:21 PM CDT [facility] METAPNEUMOVIRUS PCR (RESP) NOT DETECTED NOT DETECTED 07/13/2024 2:21 PM CDT [facility] RHINOVIRUS/ENTEROV IRUS PCR (RESP) NOT DETECTED NOT DETECTED 07/13/2024 2:21 PM CDT [facility] INFLUENZA A PCR (RESP) NOT DETECTED NOT DETECTED 07/13/2024 2:21 PM CDT [facility] INFLUENZA B PCR (RESP) NOT DETECTED NOT DETECTED 07/13/2024 2:21 PM CDT [facility] PARAINFLUENZA 1 PCR (RESP) NOT DETECTED NOT DETECTED 07/13/2024 2:21 PM CDT [facility] PARAINFLUENZA 2 PCR (RESP) NOT DETECTED NOT DETECTED 07/13/2024 2:21 PM CDT [facility] PARAINFLUENZA 3 PCR (RESP) NOT DETECTED NOT DETECTED 07/13/2024 2:21 PM CDT [facility] PARAINFLUENZA 4 PCR (RESP) NOT DETECTED NOT DETECTED 07/13/2024 2:21 PM CDT [facility] RSV PCR (RESP) NOT DETECTED NOT DETECTED 07/13/2024 2:21 PM CDT [facility] B PARAPERTUSIS PCR (RESP) NOT DETECTED NOT DETECTED 07/13/2024 2:21 PM CDT [facility] BORDETELLA PERTUSSIS PCR (RESP) NOT DETECTED NOT DETECTED 07/13/2024 2:21 PM CDT [facility] CHLAMYDOPHILA PNEUMONIAE PCR (RESP) NOT DETECTED NOT DETECTED 07/13/2024 2:21 PM CDT [facility] MYCOPLASMA PNEUMONIAE PCR (RESP) NOT DETECTED NOT DETECTED 07/13/2024 2:21 PM CDT [facility] CORONAVIRUS SARS COV 2 PCR (RESP) NOT DETECTED NOT DETECTED 07/13/2024 2:21 PM CDT [facility] NASOPHARYNGEAL SWAB / Unknown 07/13/2024 12:06 PM CDT Lisa MADRIGALP MICROBIOLOGY - GENERAL ORDE [facility] Final Result [facility] [address] [place] [id number], [place] [phone] * TSH W/REFLEX (07/13/2024 12:06 PM CDT) TSH 0.442 0.358 - 3.74 uIU/ML 07/13/2024 1:17 PM CDT [facility] Comment: HIGH DOSES OF BIOTIN MAY INTERFERE WITH THIS TEST RESULT. CORRELATION TO CLINICAL HISTORY AND PRESENTATION RECOMMENDED. FREE T4 NOT INDICATED 07/13/2024 12:0 6 PM CDT Lisa MADRIGLAP LABORATORY Final Resul t [facility] [address] [place] [address], [place] [phone] * (ABNORMAL) DRUG SCREEN RAPID (07/13/2024 12:06 PM CDT) AMPHETAMINE (U) NEGATIVE NEGATIVE 4:51 PM CDT [facility] BARBITURATES SCREEN (U) NEGATIVE NEGATIVE 07/13/2024 4:51 PM CDT [facility] BENZODIAZEPINES SCREEN (U) NEGATIVE NEGATIVE 07/13/2024 4:51 PM CDT [facility] CANNABINOIDS SCREEN (U) NEGATIVE NEGATIVE 07/13/2024 4:51 PM CDT [facility] COCAINE METABOLITES (U) POSITIVE(A) NEGATIVE 07/13/2024 4:51 PM CDT [facility] METHADONE (U) NEGATIVE NEGATIVE 07/13/2024 4:51 PM CDT [facility] OPIATE SCREEN (U) NEGATIVE NEGATIVE 025 4:51 PM CDT [facility] PHENCYCLIDINE PCP (U) NEGATIVE NEGATIVE 07/13/2024 4:51 PM CDT [facility] Comment: NOTE: RESULTS OF THIS DRUG SCREEN SHOULD BE USED FOR MEDICAL PURPOSES ONLY AND NOT FOR LEGAL OR EMPLOYMENT PURPOSES. POSITIVE RESULTS ARE NOT CONFIRMED. MEDICATIONS CONTAINING EPHEDRINE MAY CAUSE FALSE POSITIVE AMPHETAMINE CALL [phone], LAB, TO REQUEST CONFIRMATION TESTING. IF CREATININE IS <40 mg/dL. RECOLLECTION IS SUGGESTED. AMPHETAMINE- 500 NG/ML BARBITURATE- 200 NG/ML BENZODIAZEPINES- 200 NG/ML THC- 50 NG/ML COCAINE- 150 NG/ML METHADONE- 300 NG/ML OPIATE- 300 MG/ML PCP- 25 NG/ML CREATININE (U) 331.0(H) 39 - 259 MG/DL 07/13/2024 4:51 PM CDT [facility] URINE SPECIMEN / Unknown 07/13/2024 12:06 PM CDT us Lisa Watson MODULAR SET CREW MEMBER URINE ORDERABLES Final Resu lt [facility] [address] [place] [address], * (ABNORMAL) URINALYSIS (07/13/2024 12:06 PM CDT) SPECIMEN TYPE URINE CLEAN CATCH 07/13/2024 4:24 PM CDT [facility] COLOR (U) YELLOW 07/13/2024 4:33 PM CDT [facility] TRANSPARENCY TURBID 07/13/2024 4:33 PM CDT [facility] SPECIFIC GRAVITY (U) 1.029 1.001 - 1.030 07/13/2024 4:33 PM CDT [facility] U PH 5.5 5.0 - 9.0 07/13/2024 4:33 PM CDT [facility] LEUKOCYTES (U) NEGATIVE NEGATIVE 07/13/2024 4:33 PM CDT [facility] NITRITES NEGATIVE NEGATIVE 07/13/2024 4:33 PM CDT [facility] PROTEIN RANDOM (U) 20 <30 MG/DL 07/13/2024 4:33 PM CDT [facility] GLUCOSE (U) NORMAL NORMAL MG/DL 07/13/2024 4:33 PM CDT [facility] KETONES MG/DL (U) NEGATIVE NEGATIVE MG/DL 07/13/2024 4:33 PM CDT [facility] UROBILINOGEN 2.0(A) NORMAL MG/DL 07/13/2024 4:33 PM CDT [facility] BILIRUBIN (U) NEGATIVE NEGATIVE MG/DL 07/13/2024 4:33 PM CDT [facility] BLOOD (U) NEGATIVE NEGATIVE 07/13/2024 4:33 PM CDT [facility] URINE SPECIMEN OBTAINED BY CLEAN CATCH PROCEDURE / Unknown 07/13/2024 12:06 PM CDT us Lisa Watson MODULAR SET CREW MEMBER URINE ORDERABLES Final Resu lt [facility] [address] [place] [address], [place] [phone] * (ABNORMAL) COMPREHENSIVE METABOLIC PANEL (07/13/2024 12:06 PM CDT) [facility] GLUCOSE 130(H) 70 - 99 MG/DL 07/13/2024 1:17 PM CDT [facility] BUN 12 7 - 18 MG/DL 07/13/2024 1:17 PM CDT [facility] CREATININE S/P/B 0.92 0.7 - 1.3 MG/DL 07/13/2024 1:17 PM CDT [facility] SODIUM S/P/B 138 136 - 145 MMOL/L 07/13/2024 1:17 PM CDT [facility] POTASSIUM S/P/B 3.8 3.5 - 5.1 MMOL/L 07/13/2024 1:17 PM CDT [facility] CHLORIDE S/P/B 108 97 - 115 MMOL/L 07/13/2024 1:17 PM CDT [facility] CO2 25.0 21 - 32 MMOL/L 07/13/2024 1:17 PM CDT [facility] CALCIUM S/P/B 9.1 8.5 - 10.1 MG/DL 07/13/2024 1:17 PM CDT [facility] BILIRUBIN TOTAL S/P/B 0.6 0.2 - 1.2 MG/DL 07/13/2024 1:17 PM CDT [facility] Comment: THIS ASSAY IS NOT RECOMMENDED FOR PATIENTS UNDERGOING TREATMENT WITH ELTROMBOPAG DUE TO THE POTENTIAL FOR FALSELY ELEVATED RESULTS. TOTAL PROTEIN S/P/B 7.1 6.4 - 8.2 G/DL 07/13/2024 1:17 PM CDT [facility] ALBUMIN S/P/B 3.7 3.4 - 5.0 G/DL 07/13/2024 1:17 PM CDT [facility] AST 13(L) 15 - 37 U/L 07/13/2024 1:17 PM CDT [facility] ALT 28 16 - 60 U/L 07/13/2024 1:17 PM CDT [facility] ALKALINE PHOSPHATASE S/P/B 54 50 - 136 U/L 07/13/2024 1:17 PM CDT [facility] ANION GAP 5.0 2 - 10 MMOL/L 07/13/2024 1:17 PM CDT [facility] BUN CREATININE RATIO 13.0 6 - 26 07/13/2024 1:17 PM CDT [facility] A/G RATIO 1.1 1.0 - 2.0 RATIO 07/13/2024 1:17 PM T [facility] GFR ESTIMATE >90 >90 ML/MIN/1.7 3 M2 07/13/2024 1:17 PM CDT [facility] Comment: NOTE: eGFR is not calculated for patients <18 years of age or gender unknown. This is an estimated GFR calculation using the new CKD EPI creatinine equation without race and so does not require a correction factor for race. This estimated GFR should not be used for calculating drug doses. 07/13/2024 12:0 6 PM CDT Lisa Watson MODULAR [employer] LABORATORY Final Resul t [facility] [address] [place] [address], [place] [phone] * (ABNORMAL) CBC W/DIFF AUTOMATED (07/13/2024 12:06 PM CDT) WBC 9.25 4.5 - 11.0 x10'3/uL 07/13/2024 12:43 PM CDT [facility] RBC 4.68(L) 4.70 - 6.10 x10'6/uL 07/13/2024 12:43 PM CDT [facility] HGB 15.4 14.0 - 18.0 G/DL 07/13/2024 12:43 PM CDT [facility] HCT 43.6 43.0 - 54.0 % 07/13/2024 12:43 PM CDT [facility] MCV 93.2 80.0 - 94.0 FL 07/13/2024 12:43 PM CDT [facility] MCH 32.9(H) 27.0 - 31.0 PG 07/13/2024 12:43 PM CDT [facility] MCHC 35.3 32.0 - 36.0 G/DL 07/13/2024 12:43 PM CDT [facility] RDW 12.7 11.5 - 14.5 % 07/13/2024 12:43 PM CDT [facility] PLT 331 130 - 400 x10'3/uL 07/13/2024 12:43 PM CDT [facility] MPV 10.0 9.3 - 12.2 FL 07/13/2024 12:43 PM CDT [facility] DIFFERENTIAL TYPE AUTOMATED DIFFERENTIAL 07/13/2024 12:43 PM CDT [facility] NEUTROPHILS % 75.8 % 07/13/2024 12:43 PM CDT [facility] LYMPHOCYTES % 16.6 % 07/13/2024 12:43 PM CDT [facility] MONOCYTES % 5.1 % 07/13/2024 12:43 PM CDT [facility] EOSINOPHILS 2.1 % 07/13/2024 12:43 PM CDT [facility] BASOPHILS 0.2 % 07/13/2024 12:43 PM CDT [facility] IMMATURE GRANS % 0.2 % 07/14/19 25 12:43 PM CDT [facility] ABS. NEUTROPHILS 7.01 1.80 - 7.70 x10'3/uL 07/13/2024 12:43 PM CDT [facility] ABS. LYMPHOCYTES 1.54 1.00 - 4.80 x10'3/uL 07/13/2024 12:43 PM CDT [facility] ABS. MONOCYTES 0.47 0.30 - 0.82 x10'3/uL 07/13/2024 12:43 PM CDT [facility] ABS. EOSINOPHILS 0.19 0.04 - 0.54 x10'3/uL 07/13/2024 12:43 PM CDT [facility] ABS. BASOPHILS 0.02 0.01 - 0.08 x10'3/uL 07/13/2024 12:43 PM CDT [facility] ABS. IMMATURE GRANULOCYTES 0.02 0.00 - 0.49 x10'3/uL 07/13/2024 12:43 PM CDT [facility] 07/13/2024 12:0 6 PM CDT us Lisa Watson [employer] LABORATORY Final Resul t [facility] [address] [place] [address], * TROPONIN, QUANT (07/13/2024 12:06 PM CDT) TROPONIN I HIGH SENSITIVITY <3 <79 ng/L 07/13/2024 1:17 PM CDT [facility] Comment: HIGH DOSES OF BIOTIN, TROPONIN-SPECIFIC AUTOANTIBODIES, AND ANTIBODY THERAPY CONTAINING HAMA MAY INTERFERE WITH THIS TEST RESULT. CORRELATION TO CLINICAL HISTORY AND PRESENTATION RECOMMENDED. 07/13/2024 12:0 6 PM CDT Lisa Watson [facility] Final Resul t Performing Organization Address [facility] Co de Phone Number [facility] [address] [place] [address], * MAGNESIUM (07/13/2024 12:06 PM CDT) MAGNESIUM 2.1 1.8 - 2.4 MG/DL 07/13/2024 1:17 PM CDT [facility] 07/13/2024 12:0 6 PM CDT Lisa Watson [facility] Final Resul t Performing Organization Address [facility] de Phone Number [facility] [address] [place] [address], * (ABNORMAL) SALICYLATE (07/13/2024 12:06 PM CDT) SALICYLATES <1.7(L) 2.8 - 20.0 MG/DL 07/13/2024 1:03 PM CDT [facility] Comment: THERAPEUTIC: 2.8-20.0 Toxic Level: >=30 07/13/2024 12:0 6 PM CDT Lisa Watson [facility] Final Resul t Performing Organization Address [facility] Co de Phone Number [facility] [address] [place] [address], * ETHANOL (07/13/2024 12:06 PM CDT) ALCOHOL S/P/B <0.003 <0.003 G/DL 07/13/2024 1:17 PM CDT [facility] 07/13/2024 12:0 6 PM CDT Lisa Watson [facility] Final Resul t Performing Organization Address City/[facility]/ZIP Co de Phone Number [facility] [address] [place] [address], [place] [phone] * (ABNORMAL) ACETAMINOPHEN (07/13/2024 12:06 PM CDT) ACETAMINOPHEN S/P/B <2.0(L) 10.0 - 30.0 MCG/ML 07/13/2024 1:17 PM CDT [facility] Comment: THERAPEUTIC: 10-30 TOXIC: >200 07/13/2024 12:0 6 PM CDT Lisa Watson [facility] Final Resul t Performing Organization Address City/[facility] Co de Phone Number [facility] [address] [place] [address], [place] [phone] from Last 3 Months Insurance [facility] Care Teams Dredge Pipe Installer Relationship Specialty Start Date End Date Mo Ford MD [address] [address] PCP - General FAMILY PRACTICE 02/16/23
[2024-10-04 10:52] LABS: Alanine Aminotransferase 41 U/L (6-50); Albumin Level 4.7 g/dL (3.5-5.1); Alkaline Phosphatase 61 U/L (38-126); Anion Gap 14 mmol/L (4-12); Aspartate Amino Transferase 42 U/L (17-59); Bilirubin,Total 0.9 mg/dL (0.2-1.3); Blood Urea Nitrogen 17 mg/dL (9-20); Calcium 9.7 mg/dL (8.4-10.2); Carbon Dioxide 22 mmol/L (22-30); Chloride 101 mmol/L (98-107); Estimated CRCL calculation 120 ml/min; Estimated Glomerular Filt Rate > 60; Glucose 208 mg/dL (65-110); Potassium 3.6 mmol/L (3.4-5.0); Sodium 137 mmol/L (137-145); Total Protein 7.9 g/dL (6.3-8.2)
[2024-10-04 10:53] LABS: Acetaminophen < 10 ug/mL (10-30); Salicylate < 1.0 mg/dL (2-20)
[2024-10-04 11:24] LABS: Add Urine Microscopic? YES; Appearance Urine Cloudy (Clear); Glucose Urine UA 3+ mg/dL (Negative); Leukocyte Esterase Ur Negative LEU/UL (Negative); Nitrate Urine Negative (Negative); Specific Grav Ur 1.036 (1.001-1.035)
[2024-10-04 11:40] LABS: Cannabinoid Screen Urine Negative (Negative)
[2024-10-04 12:37] LABS: Thyroid Stimulating Hormone 1.760 uIU/mL (0.465-4.680)
== END 2024-10-04 12:49 | disposition home or self-care (01) ==
PROVIDERS: Emergency Provider Student in an Organized Health Care Education/Training Program; PCP Family Medicine
DX: F14.129 Cocaine abuse with intoxication, unspecified (principal); F19.10 Other psychoactive substance abuse, uncomplicated
CPT/HCPCS: 36415; 80053; 80143; 80179; 80307; 81001; 82077; 82948; 84443; 85025; 87086; 93005; 96361; 96374; 96375; 99284; J2060; J2405; J7121

== ENCOUNTER 2024-12-15 05:40 | Emergency (ER) | payer OTHER, SELFPAY ==
--- OUTSIDE RECORDS SUMMARY | 2021-09-26 03:00 | XMS_ITS | Continuity of Care Document ---
Author Organization [facility] Address [address] [place] [address] Phone Care Team Providers Care Industrial Maintenance Electrician Name Role Phone Mo Acosta MD, MD Unavailable Unavaila ble Allergies, Adverse Reactions, Alerts Substance Reaction Status Criticality No Known Allergies Active No Inform ation Medications Medication Instructions Dosage Effective Dates (start - stop) Status Comments Tecopa 5 mg-325 mg tablet take 1-2 tablet by oral route every 4 hours as needed for post operative pain control - Active OxyContin 10 mg tablet,crush resistant,extended release take 1 tablet by oral route every 12 hours 10 MG - Active Zofran 4 mg tablet take 1 tablet by ora l route every 6 hours as needed for post operative nausea control - Active meloxicam 15 mg tablet take 1 tablet by oral route every day 15 MG - Active Adderall 30 mg tablet - Active Procedures Procedure Date X-ray exam knee, 3 views Office/outpatient visit,est, mod 2021 Pre Payment Pre Payment Medical Record Copy Medical Record Copy Per Page Affidavit X-ray exam knee, 3 views Office/outpatient visit,est, mod 2020 Global/Postop followup visit Supplemental Report Global/Postop followup visit Supplemental Report Global/Postop followup visit Supplemental Report Walker, Adult, folding adjust/fixed Total Knee Replacement Office/outpatient visit,est, mod 2020 X-ray exam knee, 4+ views Pre Payment Advance Directives Directive Yes / No Effective Date File Name No Information Encounters Encounter Description Practice Location Reason(s) For Visit Diagnoses Date Provider Providers Copied on Encounter Office/outpa tient visit,est, mod [facility], [address] [place] [address], [id number], tel:[phone] [facility] right knee (chief complaint) Pain in right knee 2 Karla Hassan . [address], [id number], [place]. tel:[phone] [facility], [address], [id number], [place] tel:[phone] [facility] No Information 2 Karla Hassan . [address] [address], [place], [place], [id number], [place]. tel:[phone] Referring Provider: Mo Ford, [address], [address]. tel:[phone] [facility], [address], [id number], [place] tel:[phone] [facility] No Information 2 Karla Hassan . [address] [facility], [address], [id number], [place]. tel:[phone] Referring Provider: Mo Ford, [address] [facility] [address], [place], [address]. tel:[phone] [facility], [address] [address], [place], [place], [id number], [place] tel:[phone] [facility] No Information 2 Administrat princess Provider. [address] [facility] [address], [place], [place], [id number], [place]. tel:[phone] Referring Provider: Mo Ford, [address] [facility] [address], [place], [address]. tel:[phone] Office/outpa tient visit,est, mod [facility], [address] [address], [place], [place], [id number], [place] tel:[phone] [facility] right knee (chief complaint) Pain in right knee 1 Karla Hassan . [address] [address], [place], [place], [id number], [place]. tel:[phone] Referring Provider: Mo Ford, 200 [facility] [address], [place], [address]. tel:[phone] [facility], [address], [id number], [place] tel:[phone] [facility] Unilateral primary osteoarthrit is, right knee 1 Karla Hassan . [address] [facility], [address] [address], [place], [place], [id number], [place]. tel:[phone] [facility], [address] [place] [address], [id number], [place] tel:[phone] [facility] right knee (chief complaint) Unilateral primary osteoarthrit is, right knee 1 Karla Hassan . [address] [facility] [facility], [address] [address], [place], [place], [id number], [place]. tel:[phone] [facility], [address] [place] [address], [id number], [place] tel:[phone] [facility] right knee (chief complaint) Unilateral primary osteoarthrit is, right knee 1 Karla Hassan . [address] [facility] [address], [place], [place], [id number], [place]. tel:[phone] Referring Provider: Mo Ford, [address] [facility] [address], [place], [address]. tel:[phone] [facility], [address] [address], [place], [place], [id number], [place] tel:[phone] [facility] right knee (chief complaint) Unilateral primary osteoarthrit is, right knee 1 Karla Hassan . [address] [facility] [facility], [facility] [address], [place], [place], [id number], [place]. tel:[phone] [facility], [address], [id number], [place] tel:[phone] [facility] Unilateral primary osteoarthrit is, right knee 1 Karla Hassan . [address] [facility], [address] [address], [place], [place], [id number], [place]. tel:[phone] [facility], [address], [id number], [place] tel:[phone] [facility] No Information 1 Karla Hassan . [address], [facility] [address], [place], [place], [id number], [place]. tel:[phone] [facility], [address], [id number], [place] tel:[phone] [facility] [place] No Information 1 Karla Hassan . [address] [facility], [facility] [address], [place], [place], [id number], [place]. tel:[phone] [facility], [address], [id number], [place] tel:[phone] [facility] No Information 1 Marcello Helton. [address] [address], [place], [place], [id number], [place]. tel:[phone] [facility], [address] [address], [place], [place], [id number], [place] tel:[phone] [facility] Unilateral primary osteoarthrit is, right knee 1 Karla Hassan . [address] [address], [place], [place], [id number], [place]. tel:[phone] Office/outpa tient visit,est, [facility], [address] [address], [place], [place], [id number], [place] tel:[phone] [facility] right knee (chief complaint) Unilateral primary osteoarthrit is, right knee 1 Karla Hassan . [address] [address], [place], [place], [id number], [place]. tel:[phone] [facility], [address], [id number], [place] tel:[phone] [facility] right knee (chief complaint) Pain in right knee 1 Karla Hassan . [address] [address], [place], [place], [id number], [place]. tel:[phone] [facility], [address], [id number], [place] tel:[phone] [facility] No Information 1 Karla Hassan . [address], [id number], [place]. tel:[phone] Family History Family Member Type Diagnosis Age At Onset Mother Problem (finding) Cancer, unknown Payers Payer name Insurance type Covered alliance party ID Authoriza tion(s) [facility] [id number] Social History Type Description Quantity Date Captured Comments Alcohol Use Details Unknown Caffeine Use Details Unknown Tobacco Use Status No Information Smoking Status Former smoker Non-Smoking Tobacco Use Details : No Details Available : No Details Available Sex Male Vital Signs Date / Time: Height Weight BMI Pulse Rate Blood Pressure Temperature Respiratory Rate Body Surface Area Head Circumference Head Circ. Percentile Wt./Henry. Percentile BMI percentile Pulse Ox Inhaled Ox 8:27 AM 72.00 in 99.790 kg (220.00 lbs) 29.8 4 kg/m eter (2) Chief Complaint And Reason For Visit From encounter dated '09/26/2021 08:00'. right knee (chief complaint). Description: Adrian Luevano is a 40 year-old male whopresents to the office for evaluation of right knee pain. Reason For Referral Reason For Referral No Information Plan Of Treatment Date Type Action Status Referral Ordered: X-ray exam knee, 3 views RT knee ordered Referral Ordered: X-ray exam knee, 4+ views RT knee ordered History Of Present Illness Encounter Date Complaint History Of Prese nt Illness right knee Adrian Luevano i s a 40 year-old male who presents to the office for evaluation of right knee pain. right knee Francisco Javier is a 40 year-old male who presents to the office for evaluation of right knee pain. right knee Francisco Javier is a 40 year-old male who presents to the office for evaluation of right knee pain. right knee Francisco Javier is a 39 year-old male who presents to the office for evaluation of right knee pain. right knee Francisco Javier is a 39 year-old male who presents to the office for follow up evaluation of right knee pain. right knee Francisco Javier is a 39 year-old male who presents to the office for follow up evaluation of right knee pain. right knee Patient presents for evaluation of right knee pain. Functional Status Date Functional Assessmen t No Information Instructions Date Instruction Additional Infor mation No Information Assessments Type Assessment Date assessment Pain in right knee Patient Care Teams Name Effective Dates (start - stop) Status Members No Information
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
--- OUTSIDE RECORDS SUMMARY | 2024-12-15 05:42 | XMS_ITS | Clinical Summary ---
Author Organization [facility] Address [address] [place] [address] Phone Care Team Providers Care Dye Range Operator Cloth Name Role Phone Mo Ford MD Primary Care Provider Allergies Active Allergy Reactions Criticality Noted Date Comments Quetiapine Confusion Low 02/21/2023 Zolpidem Confusion Low 02/21/2023 Medications hydrOXYzine HCL (ATARAX) 50 mg tablet Take 1 Tablet (50 mg) by mouth every 6 hours as needed for Anxiety or Itching. 45 Tablet 10/02/2024 10:25 AM CDT 10/02/2024 Active OLANZapine (ZyPREXA) 10 mg tablet Take 1 Tablet (10 mg) by mouth daily at bedtime. 30 Tablet 10/02/2024 10:25 AM CDT 10/02/2024 Active traZODone (DESYREL) 100 mg tablet Take 1 Tablet (100 mg) by mouth nightly as needed for Insomnia. 25 Tablet 10/02/2024 10:25 AM CDT 10/02/2024 Active Active Problems Problem Noted Date Diagnosed Date Opioid use disorder 09/30/2024 Bipolar disorder, current episode depressed, sev ere 09/23/2023 Cocaine abuse 09/23/2023 Anxiety disorder 09/23/2023 PTSD (post-traumatic stress disorder) 09/23/2023 ADHD 09/23/2023 Encounters Date Type Department Care Team Description 12/02/2024 External Device Data STL ABSTRACTION Provider, Abstract 11/04/2024 External Device Data ST[facility] ABSTRACTION Provider, Abstract 11/04/2024 External Device Data ST[facility] ABSTRACTION Provider, Abstract 11/04/2024 External Device Data ST[facility] ABSTRACTION Provider, Abstract 10/21/2024 External Device Data STL ABSTRACTION Provider, Abstract 10/10/2024 Telephone [facility] [employer] [facility] [address] [place] [address] Sim Tello Follow Up (Francisco Javier was recently evaluated by the Behavioral Health Intake team on 10/04/2024. This metal can inspector attempted to contact the PT/LG/POA to offer additional BH resources but was unable as msg stated pt was n/a.) 10/08[facility] [address] [place] [place] [address] Ace Briana SURP Outreach 10/07/2024 Telephone [employer] [facility] [address] [place] [place] [address] Ace Avey SURP Outreach 10/06/2024 [facility] [address] [place] [address] Valenteasher SURP Outreach 10/04/2024 3:05 PM CDT - 10/04/2024 5:56 PM CDT Emergency [facility] Emergency Department [address] [place] [id number] Rekha Livingston MD Other psychoactive substance use, unspecified with psychoactive substance-induced mood disorder (CMS/HCC) (Primary Dx) Discharge Disposition: Home or Self Care 09/30/2024 External Device Data STL ABSTRACTION Provider, Abstract 09/30/2024 External Device Data STL ABSTRACTION Provider, Abstract 09/30/2024 External Device Data STL ABSTRACTION Provider, Abstract 09/29/2024 Plan of Care Documentation [facility] Behavior[facility] [address] [place] [address] 09/27/2024 5:48 PM CDT - 10/02/2024 10:55 AM CDT Hospital Encounter [facility] Behavioral Medicine [address] [place] [address] Vazquez Coelman MD Yayah, Faisal M, MD Gupta, Rahul, MD Sood, Swati, MD Qaisrani, Mohammad Bipin, MD Bipolar disorder, current episode depressed, severe (CMS/HCC) Discharge Disposition: Home or Self Care 09/27/2024 Patient Outreach [facility] [address] [place] [phone] Saundra Coreas Referral (PAR team.) 09/27/2024 Travel 09/17/2024 External Device Data STL ABSTRACTION Provider, Abstract 09/17/2024 External Device Data STL ABSTRACTION Provider, Abstract from Last 3 Months Social History Tobacco Use Types Packs/Day Years Used Date Smoking Tobacco: Former Smokeless Tobacco: Never Alcohol Use Standard Drinks/Week Comments Yes 0 (1 standard drink = 0.6 oz pure alcohol) Pt reports 8-10 drinks per year Feeling Safe Answer Date Recorded Do you worry about feeling s afe and happy with the people in your life? No 09/29/2024 Food Insecurity Answer Date Recorded Do you find you are eating l ess than you should because you can t pay for food? No 09/29/2024 Transportation Needs Answer Date Record ed Have you gone without health care because you didn t have a way to get there? Or worry about transportation for future doctor visits, pick pulling machine tender medication, etc.? No 2024 Housing Stability Answer Date Recorded Do you worry you won t have a steady place to sleep or struggle to pay rent or mortgage? No 09/29/2024 Utility Needs Answer Date Recorded Do you have difficulty payin g for utility costs (electric, water or gas bills)? No 09/29/2024 Medication Needs Answer Date Recorded Have you skipped taking medi cation due to cost or worry you can t afford new medications? No 09/29/2024 Feeling Safe Answer Date Recorded Are you in a relationship wi th someone who hurts you emotionally and/or physically? No 10/04/2024 Food Insecurity Answer Date Recorded Patient needs follow up regardin 09/29/2024 Transportation Needs Answer Date Record ed Patient needs follow up regardin 09/29/2024 Housing Stability Answer Date Recorded Social/Environmental Concerns No concerns Utility Needs Answer Date Recorded Patient needs follow up regardin 09/29/2024 Sex and Gender Information Value Date Recorded Sex Assigned at Not on file Legal Sex Male 10:25 PM CDT Gender Identity Not on file Sexual Orientation Not on file Last Filed Vital Signs Vital Sign Reading Time Taken Comments Blood Pressure 111/58 10/04/2024 5:32 PM CDT Pulse 79 10/01/2024 7:20 PM CDT Temperature 36.4 C (97.6 F) 10/04/2024 3:03 PM CDT Respiratory Rate 16 10/04/2024 5:32 PM CDT Oxygen Saturation 98% 10/04/2024 5:32 PM CDT Inhaled Oxygen Concentration - - Weight 86.2 kg (190 lb) 09/29/2024 1:48 PM CDT Height 180.3 cm (5' 11) 09/29/2024 1:48 PM CDT Body Mass Index 26.5 09/29/2024 1:48 PM CDT Plan of Treatment Health Maintenance Due Date Last Done Comments DTAP/TDAP/TD VACCINES (1 - Tdap) 12/14/1999 HEPATITIS B VACCINES (1 of 3 - 19+ 3-dose series) 12/14/1999 HPV VACCINES (1 - 3-dose SCD M series) 12/14/2007 INFLUENZA VACCINE (#1) 2024 01/16/2023, 2021 COVID-19 Vaccine (3 - 2024-2 6 season) 2024 08/09/2020, 07/19/2020 Pre-Diabetes and Diabetes Screening 09/30/202709/29, 09/22/2023 Abdominal Aortic Aneurysm (A AA) Screening Completed 09/18/2022, 02/16/2022, 01/03/2022 Medical Devices Implanted Type Area Dismantler Device Identifier Shelf Expiration Date Model / Serial / Lot Stent Uret Dbl Pgtl Slcn Blk [id number] - [id number] Implanted:Qty: 1 on 12/29/2020 by Markell Black MD at [facility] Stent Right: Ureter COOK- UROLOGY 07/22/2023 [id number] / / [id number] Procedures Procedure Name Priority Date/Time Associated Diagnosis [...] Serena Esposito MD URINE ORDERABLES Final Result Performing Organization Address City/State/[facility] Co de Phone Number [facility] CLIA# [id number] [place] [address] * (ABNORMAL) DRUG SCREEN, URINE (09/29/2024 3:38 PM CDT) Pathologist [facility] Emergency Department AMPHETAMINE QUAL, URINE Negative Negative 09/29/2024 7:28 PM CDT [facility] BARBITURATE QUAL, URINE Negative Negative 09/29/2024 7:28 PM CDT [facility] BENZODIAZEPINE QUAL, URINE Negative Negative 09/29/2024 7:28 PM CDT [facility] COCAINE QUAL URINE Presumptive Positive(A) Negative 09/29/2024 7:28 PM CDT [facility] OPIATE QUAL, URINE Negative Negative 09/29/2024 7:28 PM CDT [facility] CANNABINOIDS QUAL, URINE Negative Negative 09/29/2024 7:28 PM CDT [facility] PCP QUAL, URINE Negative Negative 7:28 PM CDT [facility] OXYCODONE QUAL, URINE Negative Negative 09/29/2024 7:28 PM CDT [facility] METHADONE QUAL, URINE Negative Negative 09/29/2024 7:28 PM CDT [facility] FENTANYL QUAL, URINE Presumptive Positive(A) Negative 09/29/2024 7:28 PM CDT [facility] CREATININE, URINE 103.0 40.0 - 278.0 mg/dL 09/29/2024 7:28 PM CDT [facility] Comment:Reference Range vari es with fluid intake and diet. Urine URINE SPECIMEN OBTAINED BY CLEAN CATCH PROCEDURE / Unknown Collection / Unknown 09/29/2024 3:38 PM CDT 09/29/2024 6:27 PM CDT Narrative [facility] - 09/29/2024 7:28 PM CDT This test [...] Negative 25 ng/mL Fentanyl Negative 5 ng/mL us Serena Esposito MD URINE ORDERABLES Final Result [facility] CLIA# [id number] [place] [address] * URINALYSIS WITH REFLEX MICROSCOPIC (09/29/2024 3:38 PM CDT) COLOR UA Yellow Pale to Dark Yellow 09/29/2024 6:51 PM CDT [facility] CLARITY UA Clear Clear 09/29/2024 6:51 PM CDT [facility] SPECIFIC GRAVITY UA 1.018 1.003 - 1.035 09/29/2024 6:51 PM CDT [facility] PH UA 5.0 5.0 - 8.0 09/29/2024 6:51 PM CDT [facility] LEUKOCYTE ESTERASE UA Negative Negative 09/29/2024 6:51 PM CDT [facility] NITRITE UA Negative Negative 09/29/2024 6:51 PM CDT [facility] PROTEIN UA Negative Negative 09/29/2024 6:51 PM CDT [facility] GLUCOSE UA Negative Negative 09/29/2024 6:51 PM CDT [facility] KETONES UA Negative Negative 09/29/2024 6:51 PM CDT [facility] UROBILINOGEN UA Normal <2.0 mg/dL 6:51 PM CDT [facility] BILIRUBIN UA Negative Negative 09/29/2024 6:51 PM CDT [facility] BLOOD UA Negative Negative 09/29/2024 6:51 PM CDT [facility] Urine URINE SPECIMEN OBTAINED BY CLEAN CATCH PROCEDURE / Unknown Collection / Unknown 09/29/2024 3:38 PM CDT 09/29/2024 6:27 PM CDT Serena Esposito MD URINE ORDERABLES Final Result [facility] CLIA# [id number] [place], [place] [id number] * (ABNORMAL) CBC WITH DIFFERENTIAL (09/29/2024 3:37 PM CDT) WBC 6.0 4.0 - 9.8 K/uL 09/29/2024 6:39 PM CDT [facility] RBC 3.86(L) 4.50 - 5.40 M/uL 09/29/2024 6:39 PM CDT [facility] HEMOGLOBIN 12.6(L) 13.6 - 16.5 g/dL 09/29/2024 6:39 PM CDT [facility] HEMATOCRIT 37.4(L) 40.0 - 48.0 % 09/29/2024 6:39 PM CDT [facility] MCV 96.9 82.0 - 99.0 fL 09/29/2024 6:39 PM CDT [facility] MCH 32.6 27.2 - 32.6 pg 09/29/2024 6:39 PM CDT [facility] MCHC 33.7 31.5 - 35.5 g/dL 09/29/2024 6:39 PM CDT [facility] RDW 13.0 11.5 - 14.5 % 09/29/2024 6:39 PM CDT [facility] RDW-STDEV 46.5 37.1 - 48.7 fL 09/29/2024 6:39 PM CDT [facility] PLATELETS 241 140 - 350 K/uL 09/29/2024 6:39 PM CDT [facility] MPV 10.7 9.3 - 12.4 fL 09/29/2024 6:39 PM CDT [facility] NEUTROPHILS 63 % 09/29/2024 6:39 PM CDT [facility] LYMPHOCYTES 26 % 09/29/2024 6:39 PM CDT [facility] SERVICES [facility] MONOCYTES 8 % 09/29/2024 6:39 PM CDT [facility] SERVICES [facility] EOSINOPHILS 3 % 09/29/2024 6:39 PM CDT [facility] SERVICES [facility] BASOPHILS 0 % 09/29/2024 6:39 PM CDT [facility] SERVICES [facility] IMMATURE GRANULOCYTES 0 % 09/29/2024 6:39 PM CDT [facility] NEUTROPHIL ABSOLUTE 3.77 1.90 - 7.00 K/uL 09/29/2024 6:39 PM CDT [facility] LYMPHOCYTE ABSOLUTE 1.55 0.70 - 4.50 K/uL 09/29/2024 6:39 PM CDT [facility] SERVICES - [facility] MONOCYTE ABSOLUTE 0.46 0.10 - 1.30 K/uL 09/29/2024 6:39 PM CDT [facility] SERVICES - [facility] EOSINOPHIL ABSOLUTE 0.18 0.00 - 0.70 K/uL 09/29/2024 6:39 PM CDT [facility] SERVICES - [facility] BASOPHILS ABSOLUTE 0.01 0.00 - 0.20 K/uL 09/29/2024 6:39 PM CDT [facility] SERVICES - [facility] IMMATURE GRANULOCYTES ABSOLUTE 0.02 0.00 - 0.03 K/uL 09/29/2024 6:39 PM CDT [facility] Blood Venipuncture / Unknown 09/29/2024 3:37 PM CDT 09/29/2024 6:37 PM CDT Serena Esposito MD HEMATOLOGY ORDERABLES Final Resu lt [facility] CLIA# [id number] [place] [address] * TSH (09/29/2024 3:37 PM CDT) [facility] TSH 1.11 0.27 - 4.20 uIU/mL 09/29/2024 7:13 PM CDT [facility] Blood Venipuncture / Unknown 09/29/2024 3:37 PM CDT 09/29/2024 6:36 PM CDT Serena Esposito MD CHEMISTRY ORDERABLES Final Resul t [facility] CLIA# [id number] [place] [address] * HEMOGLOBIN A1C (09/29/2024 3:37 PM CDT) [facility] HEMOGLOBIN A1C 5.6 <=5.6 % 09/29/2024 6:54 PM CDT [facility] EST. AVG GLUCOSE, A1C 114 mg/dL 09/29/2024 6:54 PM CDT [facility] Blood Venipuncture / Unknown 09/29/2024 3:37 PM CDT 09/29/2024 6:36 PM CDT Narrative [facility] - 09/29/2024 6:54 PM CDT HGB A1C INTERPRETATION NORMAL: <5.7% PRE-DIABETES: 5.7 - 6.4% DIABETES: 6.5% OR GREATER Serean Esposito MD CHEMISTRY ORDERABLES Final Resul t Performing Organization Address City/[facility]/ZIP Co de Phone Number [facility] CLIA# [id number] [place] [address] * ETHANOL LEVEL (09/29/2024 3:37 PM CDT) [facility] ETHANOL <10.10 No Ref Range Estab mg/dL 09/29/2024 7:13 PM CDT [facility] ETHANOL % <0.01 %w/v 09/29/2024 7:13 PM CDT [facility] Blood Venipuncture / Unknown 09/29/2024 3:37 PM CDT 09/29/2024 6:36 PM CDT Serena Esposito MD CHEMISTRY ORDERABLES Final Resul t Performing Organization Address [facility]/ZIP Co de Phone Number [id number] [place] [address] * (ABNORMAL) LIPID PANEL (09/29/2024 3:37 PM CDT) [facility] CHOLESTEROL 112 <200 mg/dL 09/29/2024 7:13 PM CDT [facility] TRIGLYCERIDE 88 <150 mg/dL 09/29/2024 7:13 PM CDT [facility] HDL 29(L) 40 - 59 mg/dL 09/29/2024 7:13 PM CDT [facility] LDL CALCULATED 65 <100 mg/dL 09/29/2024 7:13 PM CDT [facility] NON-HDL CHOLESTEROL 83 <130 mg/dL 09/29/2024 7:13 PM CDT [facility] Blood Venipuncture / Unknown 09/29/2024 3:37 PM CDT 09/29/2024 6:36 PM CDT [facility] - 09/29/2024 7:13 PM CDT TOTAL CHOLESTEROL [...] Reference Ranges for Lipid Panels (NCEP/AMA) . us Serena Esposito MD CHEMISTRY ORDERABLES Final Resul t [facility] CLIA# [id number] [place] [address] * (ABNORMAL) COMPREHENSIVE METABOLIC PANEL (09/29/2024 3:37 PM CDT) SODIUM 143 136 - 145 mmol/L 09/29/2024 7:13 PM CDT [facility] POTASSIUM 4.0 3.4 - 5.1 mmol/L 09/29/2024 7:[address] [facility] CHLORIDE 109(H) 98 - 107 mmol/L 09/29/2024 7:[address] [facility] CO2 20(L) 22 - 29 mmol/L 09/29/2024 7:[address] [facility] CALCIUM 8.7 8.6 - 10.4 mg/dL 09/29/2024 7:[address] [facility] BUN 17 6 - 20 mg/dL 09/29/2024 7:[address] [facility] CREATININE 0.76 0.67 - 1.17 mg/dL 09/29/2024 7:[address] [facility] GLUCOSE 115(H) 74 - 99 mg/dL 09/29/2024 7:[address] [facility] TOTAL PROTEIN 5.8(L) 6.3 - 8.7 g/dL 09/29/2024 7:[address] [facility] ALBUMIN 3.6 3.5 - 5.2 g/dL 09/29/2024 7:[address] [facility] BILIRUBIN TOTAL <0.2 0.0 - 1.2 mg/dL 09/29/2024 7:[address] [facility] ALKALINE PHOSPHATASE 55 40 - 150 U/L 09/29/2024 7:[address] [facility] AST 19 0 - 41 U/L 09/29/2024 7:[address] [facility] ALT 17 0 - 41 U/L 09/29/2024 7:[address] [facility] GFR >60 >=60 mL/min/1.7 3 sq meter 09/29/2024 7:[address] [facility] Comment:eGFR calculated with 2020 CKD-EPI equation. Vegetarian diet, extremely high or low muscle mass, and may affect results. Cystatin C with Glomerular Filtration Rate is a suitable alternative for these patients. ANION GAP 14 8 - 16 mmol/L 09/29/2024 7:13 PM [facility] SERVICES [facility] Blood Venipuncture / Unknown 09/29/2024 3:37 PM CDT 09/29/2024 6:36 PM CDT Serena Esposito MD CHEMISTRY ORDERABLES Final Resul t [facility] SERVICES [facility] CLIA# [id number] [place] [address] from Last 3 Months Insurance RX [employer] (INTERNAL) [facility] [employer] RX [facility] [employer]NAGEMENT [facility] (INTERNAL) [employer] [place] Advance Directives For more information, please contact: [phone] * Full Code (Latest Code Status on File) Date Activated Date Inactivated Comments 09/29/2024 2:08 PM 10/02/2024 1:00 PM * Full Code Date Activated Date Inactivated Comments 09/22/2023 10:36 PM 09/25/2023 6:09 PM * Full Code Date Activated Date Inactivated Comments 12/28/2020 2:32 PM 12/29/2020 7:36 PM Care Teams Dye Range Operator Cloth Relationship Specialty Start Date End Date Mo Ford MD PCP - General 09/26/17
--- OUTSIDE RECORDS SUMMARY | 2024-12-15 05:42 | XMS_ITS | Clinical Summary ---
Author Organization [facility] Address [facility] [place] [address] Care Team Providers Care Exercise Equipment Specialist Name Role Phone Mo Ford MD Primary [...] TINCTURE Take 2-25 mg by mouth. Active Social History Tobacco Use Types Packs/Day Years [...] Comments Annual Physical 12/14/1983 Hepatitis C 1998 Hepatitis A Vaccines (2 of 2 - 2-dose series) 09/21/1999 03/23/1999 DTaP, Tdap and Td Vaccines ( 1 - Tdap) 12/14/1999 Hepatitis B Vaccines (1 of 3 - 19+ 3-dose series) 12/14/1999 HPV Vaccines (1 - 3-dose SCD M series) 12/14/2007 COVID-19 Vaccine (3 - 2024-2 6 season) 2024 08/09/2020, 07/19/2020 Influenza Adult (#1) 2024 01/16/2023, 01/04/2022 EGD-Camilo's Surveillance Discontinued 02/21/2023 Meningococcal B Vaccine [...] this topic Medical Devices Implanted Type Area Vocational Training Director Device Identifier Shelf Expiration Date Model / Serial / Lot Knee Components, Right Knee Components Procedures Procedure Name Priority Date/Time Associated Diagnosis Comments EGD Routine 02/21/2023 7:30 AM 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
[2024-12-15 05:43] VITALS: BP 118/85; PULSE 89; RESP 18; TEMP 36.4; O2SAT 97
[2024-12-15] MEDS: CYCLOBENZAPRINE HCL 10 MG TABLET PO (06:58)
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
[2024-12-15 07:56] VITALS: BP 109/81; PULSE 90; RESP 17; O2SAT 98
== END 2024-12-15 07:55 | disposition home or self-care (01) ==
LOC: ANHED 07:17
PROVIDERS: Emergency Provider Student in an Organized Health Care Education/Training Program; PCP Family Medicine
DX: S39.012A Strain of muscle, fascia and tendon of lower back, initial encounter (principal); R51.9 Headache, unspecified; V49.50XA Passenger injured in collision with unspecified motor vehicles in traffic accident, initial encounter
CPT/HCPCS: 71045; 72170; 99284; A9270

== ENCOUNTER 2025-01-20 10:06 | Emergency (ER) | payer OTHER, SELFPAY ==
--- NOTE | ~2025-01-20 | XR_ITS ---
Examination: XR wrist RT min 3V Clinical History: injury Comparison: None Technique: 4 views right wrist Findings/impression: 1. No fracture or dislocation right wrist. 2. Mild positive ulnar variance. 3. Degenerative changes first MCP joint. Reviewed, dictated and finalized at location R. 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
[2025-01-20 10:08] VITALS: BP 122/72; PULSE 81; RESP 18; TEMP 36.4; O2SAT 99
--- NOTE | 2025-01-20 13:42 | ED_ITS ---
HPI - Extremity Injury (Upper) General Chief Complaint: Extremity Injury, Upper Stated Complaint: right arm injury since Time Seen by Provider: 01/20/25 12:02 Source: patient Mode of arrival: ambulatory Limitations: no limitations History of Present Illness HPI narrative: This is a 44-year-old male with no significant past medical history presents the ED for forearm pain. 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 He has been having pain with use of since then he is right-handed. He states that he was told to go home by his employer today until he healed up. Denies numbness, tingling, fevers chills. Related Data Allergies Allergy/AdvReac Type Severity Reaction Status Date / Time quetiapine (From Seroquel) AdvReac Unknown Verified 12/15/24 05:47 skin glue Allergy Unknown Uncoded 10/04/24 10:16 Review of Systems Review of Systems: Gen.: Denies fevers or chills Eyes: Denies eye pain or visual change ENT: Denies congestion Respiratory: Denies shortness of breath or cough CV: Denies chest pain or palpitations GI: Denies abdominal pain nausea, emesis or diarrhea denies burning, urgency, frequency or hematuria Musculoskeletal: As per HPI Neuro: Denies numbness, tingling, weakness or focal weakness Skin: Denies rash Except as documented, all other systems reviewed and negative [facility] Social History Social History Occupation/Education: occupation Additional occupation/education comments: works at [employer] Exam Narrative: APPEARANCE: No acute distress, nontoxic, resting in bed EYES: EOMI HEENT: Normocephalic, atraumatic, OMM RESPIRATORY: No respiratory distress Clear to auscultation bilaterally with no rhonchi wheezing or rales. CARDIOVASCULAR: Regular rate and rhythm without murmurs rubs or gallops. ABDOMINAL: Soft, nontender, nondistended, no rebound or guarding MUSCULOSKELETAl: Moves all extremities. No clubbing, cyanosis or edema. Ten derness palpation to the midshaft volar right radius. Pain with passive flexion of the right wrist and resisted extension. NEURO: Awake and alert. Following commands, speech normal, no focal deficits SKIN:: Warm, dry. No rashes lesions or abrasions PSYCHIATRIC: Normal affect/mood, Course Vital Signs Vital signs: Vital Signs Temperature 97.6 F 01/20/25 10:08 Pulse Rate 81 01/20/25 10:08 Respiratory Rate 18 01/20/25 10:08 Blood Pressure 122/72 01/20/25 10:08 Pulse Oximetry 99 01/20/25 10:08 Oxygen Delivery Room Air 01/20/25 10:08 Temperature 97.6 F 01/20/25 10:08 Pulse Rate 81 01/20/25 10:08 Respiratory Rate 18 01/20/25 10:08 Blood Pressure 122/72 01/20/25 10:08 Pulse Oximetry 99 01/20/25 10:08 Oxygen Delivery Room Air 01/20/25 10:08 MDM - Extremity Injury (Upper) MDM Narrative Medical decision making narrative: 44-year-old male Presenting for right arm injury. On initial evaluation patient was in no acute distress afebrile, hemodynamic stable. Differentials include but are not limited to: Injury differential Notable exam findings: Tenderness over the distal aspect of the volar forearm without bony tenderness to palpation, pain associated with passive and resistive range of motions as above I personally reviewed the patient's images and interpret as follows: X-ray right wrist: No evidence of fractures Given the location of pain, I suspect the patient either strained or tore a muscle. I talked about the possibility a temporary splint versus prefab splint from a pharmacy and patient did prefer ortho glass at this time. Splint was placed by the emergency department senior quality technician under my supervision. The patient was neurovascularly intact both pre-and post procedure. Patient was deemed appropriate for discharge at this time. Patient was advised follow-up with their PCP in the next week for re-evaluation. Patient was agreeable to this plan. Given strict return precautions. Discharge Plan Discharge Clinical Impression: Muscle strain of forearm Qualifiers: Encounter type: initial encounter Laterality: right Qualified Code(s): S56.911A - Strain of unspecified muscles, fascia and tendons at forearm level, right arm, initial encounter Patient Disposition: Home Condition: Stable Instructions: Antibiotic Form, Muscle Strain (ED) Additional Instructions: I would recommend applying heat to the area 15 minutes on 15 minutes off. You may take Tylenol and ibuprofen for the pain. You were given a referral to Dr. Helton, orthopedic surgery, follow-up with his office in the next week for re-evaluation. Return the ED for any new or worsening symptoms. Patient Language: [place] Prescriptions: No Action ibuprofen 600 mg tablet 600 mg PO TID PRN (Reason: pain) Qty: 30 0RF acetaminophen 500 mg capsule 1,000 mg PO Q6H PRN (Reason: pain) Qty: 30 0RF cyclobenzaprine 10 mg tablet 10 mg PO HS PRN (Reason: muscle spasm) Qty: 7 0RF lidocaine 4 % adhesive patch,medicated 1 patch topical DAILY PRN (Reason: pain) Qty: 5 0RF Follow-up/Referrals: Liliana,Mo Ceja M.D. [Primary Care Provider] Stand Alone Forms: Work/School Release IP
== END 2025-01-20 14:11 | disposition home or self-care (01) ==
PROVIDERS: Emergency Provider Student in an Organized Health Care Education/Training Program; PCP Family Medicine
DX: S56.911A Strain of unspecified muscles, fascia and tendons at forearm level, right arm, initial encounter (principal); X50.3XXA Overexertion from repetitive movements, initial encounter
CPT/HCPCS: 29125; 73110; 99283